=== PATIENT | female | born 1995 | race Caucasian/White ===

== ENCOUNTER → 2017-05-24 | Outpatient (CLI) | payer OTHER, SELFPAY | PROVIDERS: Family Provider Emergency Medicine; Visit Provider Nurse Practitioner Family | DX: M25.512 Pain in left shoulder (principal) | CPT/HCPCS: 73221 ==

== ENCOUNTER → 2017-06-27 16:30 | Outpatient (RCR) | payer OTHER, SELFPAY | LOC: PT 05-21 14:42 | PROVIDERS: PCP Emergency Medicine; Visit Provider Emergency Medicine | DX: M25.512 Pain in left shoulder (principal) | CPT/HCPCS: 97010; 97014; 97016; 97033; 97110; 97140; 97161; G0283 ==

== ENCOUNTER 2017-07-12 08:47 | Emergency (ER) | payer OTHER, SELFPAY | END 2017-07-12 09:57 | disposition home or self-care (01) | PROVIDERS: Emergency Provider Nurse Practitioner Family; Family Provider Emergency Medicine; Visit Provider Nurse Practitioner Family | DX: O99.511 Diseases of the respiratory system complicating pregnancy, first trimester (principal); J06.9 Acute upper respiratory infection, unspecified; J45.909 Unspecified asthma, uncomplicated; Z3A.00 Weeks of gestation of pregnancy not specified | CPT/HCPCS: 87804; 87880; 99201 ==

== ENCOUNTER 2017-09-25 09:32 | Emergency (ER) | payer OTHER, SELFPAY ==
[2017-09-25 10:04] VITALS: BP 126/78; PULSE 95; RESP 16; TEMP 36.6; O2SAT 98; BMI 25.6
[2017-09-25 10:14] LABS: UTC Influenza A Antigen Negative (Negative); UTC Influenza B Antigen Negative (Negative)
--- NOTE | 2017-09-25 10:41 | HMH.EDUTC ---
[facility] [place] Clinical Impression: Pharyngitis Qualifiers: Pharyngitis/tonsillitis etiology: unspecified etiology Qualified Code(s): J02.9 - Acute pharyngitis, unspecified Nausea & vomiting Qualifiers: Vomiting type: unspecified Vomiting Intractability: unspecified Qualified Code(s): R11.2 - Nausea with vomiting, unspecified Disposition: Home, Self-Care Condition on Discharge: Good Instructions: DI for Vomiting -- Adult, Sore Throat, Diarrhea Additional Instructions: * Monitor Temp. Tylenol and/or Ibuprofen as needed. ER if fever is no less than 101 despite alternating Tylenol and Ibuprofen * Encourage fluids, water, Gatorade, powerade, pedialyte if infant/toddler/or child * Warm salt water gargles for throat irritation *Warm fluids *Sore throat lozenges *Sleep elevated *humidifier or vaporizer Lots of rest Increase fluids, water, Gatorade, powerade ? Drink extra fluids with and between meals. If you have difficulty drinking, try very small amounts of water or suck on ice chips. ? Avoid fruit juices, as these do not replace minerals and can actually increase diarrhea. ? Children and adults can use sports drinks to replenish electrolytes. Younger children and infants should use products formulated for children, like oral rehydration solutions. ? Eat food in small amounts and let your stomach recover. ? Get lots of rest. You may feel tired or weak. ? Check with your doctor before taking medications or giving them to children. Never give aspirin to children or teenagers with a viral illness. This can cause Dann syndrome, a potentially life-threatening condition. Prescriptions: Azithromycin [Z-Huang 250mg Tab] 250 mg PO UD DOSE PK #6 tab Promethazine HCl [Phenergan 12.5mg tablet] 12.5 mg PO Q6H PRN #12 tab PRN Reason: Vomiting Referrals: Aly Collazo MD [Primary Care Provider] - Forms: Work/School Release Time of Disposition: 10:57 Medical Decision Making - Medical Records Medical records reviewed: Yes: I reviewed the patient's medical records. Vital Signs: 09/25/17 10:04 Temperature 97.8 F Temperature Source Temporal Artery Scan Pulse Rate [Right] 95 H Respiratory Rate 16 Blood Pressure [Right Arm] 126/78 Blood Pressure Mean [Right Arm] 94 Blood Pressure Position [Right Arm] Sitting 02 Sat by Pulse Oximetry 98 Oxygen Delivery Method Room Air - Lab Data Lab Results 09/25/17 10:03: Influenza Type A Ag Negative, Influenza Type B Ag Negative - Guillermo Inquiry Pt receiving controlled substance: No Guillermo was queried for this patient: No [facility] [place] - General Stated complaint: vomiting diarrhea low grade fever Mode of Arrival: Ambulatory Source of Information: Patient Limitations: No Limitations Description of Symptoms (Recalled from Triage Doc. by RN): VOMITING, DIARRHEA, HEADACHE, FEVER HEENT Symptoms (Recalled from RN notes): No Resp Symptoms (Recalled from RN notes): No Skin Symptoms (Recalled from RN notes): No MS Symptoms (Recalled from RN notes): No Functional Status (Recalled from RN notes): N - History of Present Illness Provider Complaint: Patient state that he daughter was recently diagnosed with stomach virus States that now she is having vomiting, diarrhea, sore throat and not feeling well State that child doctor told her she needed to come in and get checked too to make sure she didn't have the flu - Related Data Home Medications Medication Instructions Recorded Confirmed sertraline 25 mg tablet 25 mg PO Q24H 09/12/17 Previous Rx's Medication Instructions Recorded Azithromycin [Z-Huang 250mg Tab] 250 mg PO UD DOSE PK #6 tab 09/25/17 Promethazine HCl [Phenergan 12.5mg 12.5 mg PO Q6H PRN #12 tab 09/25/17 tablet] Allergies Allergy/AdvReac Type Severity Reaction Status Date / Time No Known Allergies Allergy Verified 09/25/17 10:09 - Worker's Comp Is this a Worker's Comp case?: No [facility] History I have reviewed the patient's past medical histor
--- NOTE | 2017-09-25 10:46 | ED_ITS ---
[facility] – [place] Disposition Clinical Impression: Pharyngitis Qualifiers: Pharyngitis/tonsillitis etiology: unspecified etiology Qualified Code(s): J02.9 - Acute pharyngitis, unspecified Nausea & vomiting Qualifiers: Vomiting type: unspecified Vomiting Intractability: unspecified Qualified Code( s): R11.2 - Nausea with vomiting, unspecified Disposition: Home, Self-Care Condition on Discharge: Good Instructions: DI for Vomiting -- Adult, Sore Throat, Diarrhea Additional Instructions: * Monitor Temp. Tylenol and/or Ibuprofen as needed. ER if fever is no less than 101 despite alternating Tylenol and Ibuprofen * Encourage fluids, water, Gatorade, powerade, pedialyte if infant/toddler/or child * Warm salt water gargles for throat irritation *Warm fluids *Sore throat lozenges *Sleep elevated *humidifier or vaporizer Lots of rest Increase fluids, water, Gatorade, powerade ? Drink extra fluids with and between meals. If you have difficulty drinking, try very small amounts of water or suck on ice chips. ? Avoid fruit juices, as these do not replace minerals and can actually increase diarrhea. ? Children and adults can use sports drinks to replenish electrolytes. Younger children and infants should use products formulated for children, like oral rehydration solutions. ? Eat food in small amounts and let your stomach recover. ? Get lots of rest. You may feel tired or weak. ? Check with your doctor before taking medications or giving them to children. Never give aspirin to children or teenagers with a viral illness. This can cause Jeovanny?s syndrome, a potentially life-threatening condition. Prescriptions: Azithromycin [Z-Huang 250mg Tab] 250 mg PO UD DOSE PK #6 tab Promethazine HCl [Phenergan 12.5mg tablet] 12.5 mg PO Q6H PRN #12 tab PRN Reason: Vomiting Referrals: Aly Collazo MD [Primary Care Provider] - Forms: Work/School Release Time of Disposition: 10:57 Medical Decision Making - Medical Records Medical records reviewed: Yes: I reviewed the patient's medical records. Vital Signs: 09/25/17 10:04 Temperature 97.8 F Temperature Source Temporal Artery Scan Pulse Rate [Right] 95 H Respiratory Rate 16 Blood Pressure [Right Arm] 126/78 Blood Pressure Mean [Right Arm] 94 Blood Pressure Position [Right Arm] Sitting 02 Sat by Pulse Oximetry 98 Oxygen Delivery Method Room Air - Lab Data Lab Results 09/25/17 10:03: Influenza Type A Ag Negative, Influenza Type B Ag Negative - Guillermo Inquiry Pt receiving controlled substance: No Guillermo was queried for this patient: No [facility] [place] HPI - General Stated complaint: vomiting diarrhea low grade fever Mode of Arrival: Ambulatory Source of Information: Patient Limitations: No Limitations Description of Symptoms (Recalled from Triage Doc. by RN): VOMITING, DIARRHEA, HEADACHE, FEVER HEENT Symptoms (Recalled from RN notes): No Resp Symptoms (Recalled from RN notes): No Skin Symptoms (Recalled from RN notes): No MS Symptoms (Recalled from RN notes): No Functional Status (Recalled from RN notes): N - History of Present Illness Provider Complaint: Patient state that he daughter was recently diagnosed with stomach virus States that now she is having vomiting, diarrhea, sore throat and not feeling well State that child doctor told her she needed to come in and get checked too to make sure she didn't have the flu - Related Data Home Medications Medication Inst
[2017-09-25 11:04] VITALS: BP 122/76; PULSE 70; RESP 18; TEMP 36.6
== END 2017-09-25 11:14 | disposition home or self-care (01) ==
PROVIDERS: Emergency Provider Nurse Practitioner; Family Provider Emergency Medicine; PCP Emergency Medicine
DX: J02.9 Acute pharyngitis, unspecified (principal); R11.2 Nausea with vomiting, unspecified
CPT/HCPCS: 87804; 99202

== ENCOUNTER 2017-10-07 15:00 | Outpatient (RCR) | payer OTHER, SELFPAY | END 2017-10-07 15:05 | disposition home or self-care (01) | LOC: OT 15:00 | PROVIDERS: Family Provider Emergency Medicine; PCP Emergency Medicine; Visit Provider Orthopaedic Surgery | DX: M75.102 Unspecified rotator cuff tear or rupture of left shoulder, not specified as traumatic (principal); S49.90XA Unspecified injury of shoulder and upper arm, unspecified arm, initial encounter | CPT/HCPCS: 97014; 97035; 97110; 97165; G0283 ==

== ENCOUNTER 2020-03-28 11:23 | Emergency (ER) | payer OTHER, SELFPAY ==
[2020-03-28 11:31] VITALS: BP 131/73; PULSE 80; RESP 17; TEMP 36.9; O2SAT 97; BMI 24.7
--- NOTE | 2020-03-28 11:42 | HMH.EDEYEP ---
ED Disposition Clinical Impression: Conjunctivitis Qualifiers: Conjunctivitis type: unspecified Laterality: left Qualified Code(s): H10.9 - Unspecified conjunctivitis Disposition: Home, Self-Care Condition on Discharge: Good Instructions: DI for Conjunctivitis Additional Instructions: Follow-up with ophthalmology within 2 days for reevaluation. Return to the emergency department for any increasing pain, visual changes or worsening symptoms. Prescriptions: Moxifloxacin HCl [Vigamox] 1 drp OS TID 7 Days drops Prescription Printed - Critical Care Critical Care Time: No Attestation: On 03/28/20, the high probability of a clinically significant, sudden or life threatening deterioration of the following system(s) required my full and direct attention, intervention and personal management. The time I documented below is in addition to time spent performing reported procedures but includes the following listed in this critical care notation. Medical Decision Making - Medical Records Medical records reviewed: Yes: I reviewed the patient's medical records. - Guillermo Inquiry Pt receiving controlled substance: No Vital Signs: 03/28/20 11:31 Temperature 98.5 F Temperature Source Oral Pulse Rate [Right Radial] 80 Respiratory Rate 17 Blood Pressure [Right Arm] 131/73 Blood Pressure Mean [Right Arm] 92 02 Sat by Pulse Oximetry 97 Oxygen Delivery Method Room Air Orders (Tests/Meds): ED MEDICATIONS Discontinued Medications Generic Name Dose Route Start Last Admin Trade Name Kush PRN Reason Stop Dose Admin Fluorescein Sodium 1 mg 03/28/20 11:37 Fluorescein Sodium 1mg Strip OP 03/28/20 11:38 ONCE ONE Tetracaine HCl 0 ml 03/28/20 11:37 Tetracaine 0.5% Ophth Solution 15ml OP 03/28/20 11:38 ONCE ONE Medical Decision Narrative: Patient with what appears to be conjunctivitis in the left eye. She does wear contact lens, so is provided a prescription for Vigamox to cover for Pseudomonas. There is no obvious foreign body, corneal abrasion or ulcer. I recommended follow-up with ophthalmology within the next 2 days for reevaluation. Eye Problem HPI - General Chief complaint: Eye Problems Stated complaint: lt eye pain Time Seen by Provider: 03/28/20 11:32 Mode of Arrival: Ambulatory Limitations: No Limitations Description of Symptoms (Recalled from ER Triage Doc. by RN): pt presents to ed with c/o left eye pain redness and drainage that began this morning. pt states that she woke up like this. - History of Present Illness HPI Narrative: This is a 24-year-old female who presents to the emergency department for pain in the left eye. It started to become red yesterday evening when she had her contacts in. She took her contacts out, went to sleep and woke up with increased redness in her eye. She denies any ocular trauma and does not think she got anything in her eye. She complains of blurry vision in this eye. No history of glaucoma. No fever. - Related Data Previous Rx's Medication Instructions Recorded Ondansetron [Zofran 4mg ODT] 4 mg PO Q8H PRN 10 Days #30 10/12/19 tab.rapdis Moxifloxacin HCl [Vigamox] 1 drp OS TID 7 Days drops 03/28/20 Allergies Allergy/AdvReac Type Severity Reaction Status Date / Time No Known Allergies Allergy Verified 03/28/20 11:36 [facility] History - Hepatitis A Screen Drug use history?: No High risk sexual behaviors?: No History of sexually transmitted infection?: No Currently employed?: No Childcare worker?: No Do you have indoor plumbing?: Yes Do you have electricity?: Yes Attestation statement:: This patient has been screened for Hepatitis A risk factors. I have reviewed the patient's past medical history: Yes Medical History: Reports:: Anxiety, Asthma, Depression Denies:: Diabetes Mellitus Type 1, Diabetes Mellitus Type 2 Laterality Cases: Bilateral: Tonsillectomy Other Surgeries: Yes: Dilation and Curettage, Ot
--- NOTE | 2020-03-28 11:59 | PC.NURSE ---
visual acuity testing done. results as follows: Right-20/100, Left- 20/50, Both-20/50
[2020-03-28 12:02] VITALS: BP 119/69; PULSE 79; RESP 15; TEMP 36.9; O2SAT 99
== END 2020-03-28 12:03 | disposition home or self-care (01) ==
PROVIDERS: Emergency Provider Emergency Medicine; PCP Emergency Medicine
DX: H10.32 Unspecified acute conjunctivitis, left eye (principal); F41.8 Other specified anxiety disorders; J45.909 Unspecified asthma, uncomplicated; F17.210 Nicotine dependence, cigarettes, uncomplicated
CPT/HCPCS: 99281

== ENCOUNTER → 2020-05-04 18:03 | Outpatient (CLI) | payer OTHER, SELFPAY | PROVIDERS: PCP Emergency Medicine; Referring Provider Emergency Medicine; Visit Provider Emergency Medicine | DX: Z03.818 Encounter for observation for suspected exposure to other biological agents ruled out (principal) | CPT/HCPCS: U0003 ==

== ENCOUNTER 2020-12-14 16:41 | Emergency (ER) | payer OTHER, SELFPAY ==
[2020-12-14 17:00] VITALS: BP 118/83; PULSE 68; RESP 19; TEMP 36.9; O2SAT 100; BMI 24.7
[2020-12-14 17:20] LABS: Apearance,Urine Clear (Clear); Bilirubin,Urine Negative (Negative); Blood, Urine 3+ (Negative); Color,Urine Dark Yellow (Yellow); Glucose,Urine (UA) Negative (Negative); Ketones,Urine Negative (Negative); PH,Urine 6.5 (5.0-8.5); Protein,Urine 1+ (Negative); Specific Gravity, Urine 1.025 (1.005-1.030); Urobilinogen,Urine 0.2 EU/dl (0.2)
[2020-12-14 17:21] LABS: UTC Leukocyte Esterase,Urine 1+ (Negative); UTC Nitrate,Urine Positive (Negative)
--- NOTE | 2020-12-14 17:58 | HMH.EDUTC ---
[facility] [place] Disposition Clinical Impression: Urinary tract infection Qualifiers: Urinary tract infection type: site unspecified Hematuria presence: with hematuria Qualified Code(s): N39.0 - Urinary tract infection, site not specified Disposition: Home, Self-Care Condition on Discharge: Good Instructions: Trimethoprim/Sulfamethoxazole (Alternative Therapy), Urinary Tract Infection, DI for Urinary Tract Infection (UTI), Phenazopyridine Additional Instructions: *Increase fluids. Water not Soda or Tea *Start antibiotic immediately and be sure to take as ordered for the FULL length of time although you should start to see improvement over the next 48 hours *Pyridium as needed Remember this medication will turn your urine [place]. This is normal but it will stain what ever it gets on *You should not use Pyridium for more than 48 hours. If so , follow up with your primary physician to review urine culture and ensure that antibiotic is adequate for infection *Be SURE to follow up anytime for new or worsening symptoms with your family doctor. AND in 48 hours for urine culture results with your family doctor, if you do not have a doctor then you may call back to the [facility] for urine culture results and further treatment. We do recommend that you choose and establish care with a Primary Care Physician. AND follow up with them in 10-14 days to repeat UA to ensure infection is resolved and blood no longer present *Be sure to let your PCP know that we sent urine cultures from the [facility] so they can follow up to ensure that you area the on the correct antibiotic Call your doctor office and make appointment for 48 hours (2 days from today) to follow up and get the results of your urine culture and further treatment Prescriptions: Sulfamethoxazole/Trimethoprim [Bactrim DS tablet] 1 each PO BID #14 tab Transmission Status: Received by [id number] Phenazopyridine HCl [Pyridium 200mg Tablet] 200 pow PO TID #6 tab Transmission Status: Received by [id number] Referrals: Aly Collazo MD [Primary Care Provider] - As needed Time of Disposition: 18:08 Medical Decision Making - Guillermo Inquiry Pt receiving controlled substance: No Guillermo was queried for this patient: No Vital Signs: 12/14/20 17:00 12/14/20 18:28 Temperature 98.4 F 98.4 F Temperature Source Oral Pulse Rate 68 Pulse Rate [Right Brachial] 68 Respiratory Rate 19 19 Blood Pressure 118/83 Blood Pressure [Right Arm] 118/83 Blood Pressure Mean [Right Arm] 94 Blood Pressure Source [Right Arm] Automatic Cuff Blood Pressure Position [Right Arm] Sitting 02 Sat by Pulse Oximetry 100 Oxygen Delivery Method Room Air - Lab Data Lab results reviewed: Yes: I reviewed the patient's lab results. Lab Results 12/14/20 17:01: Urine Color Dark yellow, Urine Appearance Clear, Urine pH 6.5, Ur Specific Cantil 1.025, Urine Protein 1+, Urine Glucose (UA) Negative, Urine Ketones Negative, Urine Blood 3+, Urine Nitrate Positive A, Urine Bilirubin Negative, Urine Urobilinogen 0.2, Ur Leukocyte Esterase 1+ A Orders (Tests/Meds): ED MEDICATIONS Discontinued Medications Generic Name Dose Route Start Last Admin Trade Name Freddieq PRN Reason Stop Dose Admin Ceftriaxone Sodium 1 gm 12/14/20 18:07 12/14/20 18:20 Ceftriaxone 1gm Vial IM 12/14/20 18:08 1 gm ONCE ONE Administration Protocol Lidocaine HCl 0 ml 12/14/20 18:07 12/14/20 18:20 Lidocaine 1% 5ml Pf Vial IM 12/14/20 18:08 2.1 ml ONCE ONE Administration ORDERS Category Date Time Status Urine Culture Stat Micro 12/14/20 17:13 Received Medical Decision Narrative: Patient denies history of kidney stones, denies fever, chills body aches or abdominal pain does report pain in left flank area and reports it as achy like pressure pain at times right before she has to urinate Discussed transfer to the ED for further evaluation and testing and patient declined [facility] [place] HPI - General S
[2020-12-14 18:28] VITALS: BP 118/83; PULSE 68; RESP 19; TEMP 36.9; O2SAT 100
== END 2020-12-14 18:31 | disposition home or self-care (01) ==
PROVIDERS: Emergency Provider Nurse Practitioner; PCP Emergency Medicine
DX: N30.00 Acute cystitis without hematuria (principal); B96.20 Unspecified Escherichia coli [E. coli] as the cause of diseases classified elsewhere; F41.8 Other specified anxiety disorders; J45.909 Unspecified asthma, uncomplicated; F17.210 Nicotine dependence, cigarettes, uncomplicated
CPT/HCPCS: 81003; 87086; 87088; 87186; 96372; 99202; G0463

== ENCOUNTER 2021-09-03 19:22 | Emergency (ER) | payer OTHER, SELFPAY ==
[2021-09-03 19:25] VITALS: BP 132/72; PULSE 86; RESP 18; TEMP 36.8; O2SAT 99; BMI 25.4
--- NOTE | 2021-09-03 19:39 | HMH.EDUTC ---
[facility] [place] Impression: Viral syndrome Disposition: Home, Self-Care Condition on Discharge: Good Instructions: Sore Throat, DI for Fever (Symptom) -- Adult, Nausea and Vomiting-Adult Additional Instructions: Drink extra fluids with and between meals. If you have difficulty drinking, try very small amounts of water or suck on ice chips. ? Avoid fruit juices, as these do not replace minerals and can actually increase diarrhea. ? Children and adults can use sports drinks to replenish electrolytes. Younger children and infants should use products formulated for children, like oral rehydration solutions. ? Eat food in small amounts and let your stomach recover. ? Get lots of rest. You may feel tired or weak. ? No greasy or fried foods for the next 24-48 hours BRAT diet Bananas Rice Apples and Christie ? Make sure to drink plenty of liquids ? Return if needed ? Straight to ER if any life threatening symptoms ? Zofran as prescribed *Monitor Temp, Over the counter Motrin or Tylenol as directed/as needed Tylenol every 4 hours and Motrin every 6 hours (as long as your family doctor has told you that you can take it) for fever or pain. and straight to ER if unable to lower temp less than 101.0 after medication given *Warm salt water gargles may help to soothe the throat *Throat Lozenges *Warm fluids like tea with honey may help to soothe the throat *Sleep elevated *Humidifier/Vaporizer Your throat swab was sent for culture. Those results are typically sent to your primary care. Be sure to follow up in 2-3 days with your family doctor/primary care physician if no improvement so they can review those result and treat if necessary. If you don?t have a primary care doctor, I recommend you get one but in the mean time, you will have to return to a walk in clinic Follow up IMMEDIATELY for new or worsening symptoms or no Noticeable improvement over the next 48-72 hours. 911 for difficulty breathing or swallowing ? Follow up with family doctor in the next 48-72 hours if no improvement or any worsening of symptoms Prescriptions: Ondansetron [Zofran 4mg ODT] 4 mg PO TIDP PRN #12 tab PRN Reason: Nausea Transmission Status: Pending to [id number] Referrals: Aly Collazo MD [Primary Care Provider] - Forms: Work/School Release Time of Disposition: 20:21 Medical Decision Making - Guillermo Inquiry Pt receiving controlled substance: No Guillermo was queried for this patient: No Vital Signs: 09/03/21 19:25 09/03/21 20:06 Temperature 98.3 F 98.3 F Temperature Source Oral Pulse Rate 86 Pulse Rate [Left Brachial] 86 Respiratory Rate 18 18 Blood Pressure 132/72 Blood Pressure [Left Arm] 132/72 Blood Pressure Mean [Left Arm] 92 Blood Pressure Source [Left Arm] Automatic Cuff Blood Pressure Position [Left Arm] Sitting 02 Sat by Pulse Oximetry 99 Oxygen Delivery Method Room Air - Lab Data Lab results reviewed: Yes: I reviewed the patient's lab results. Lab Results 09/03/21 19:30: Group A Strep Rapid Negative 09/03/21 19:38: [facility]st Clinic Negative 09/03/21 19:52: Urine Color Yellow, Urine Appearance Clear, Urine pH 6.0, Ur Specific Callahan 1.020, Urine Protein Negative, Urine Glucose (UA) Negative, Urine Ketones Negative, Urine Blood Negative, Urine Nitrate Negative, Urine Bilirubin Negative, Urine Urobilinogen 0.2, Ur Leukocyte Esterase Negative Orders (Tests/Meds): ED MEDICATIONS Discontinued Medications Generic Name Dose Route Start Last Admin Trade Name Freq PRN Reason Stop Dose Admin Ondansetron HCl 4 mg 09/03/21 20:08 09/03/21 20:13 Ondansetron 4mg Odt SL 09/03/21 20:09 4 mg ONCE ONE Administration ORDERS Category Date Time Status Strep Screen Confirmation Stat Micro 09/03/21 19:30 Received [facility] [place] - General Stated complaint: sore throat cough congestion abd pain sob Time Seen by Provider: 09/03/21 19:39 Mode of Arrival: Ambulatory Source of
[2021-09-03 20:00] LABS: UTC Pregnancy Test, Urine Negative (Negative)
[2021-09-03 20:00] LABS: Apearance,Urine Clear (Clear); Bilirubin,Urine Negative (Negative); Blood, Urine Negative (Negative); Color,Urine Yellow (Yellow); Glucose,Urine (UA) Negative (Negative); Ketones,Urine Negative (Negative); Protein,Urine Negative (Negative); UTC Leukocyte Esterase,Urine Negative (Negative); UTC Nitrate,Urine Negative (Negative); Urobilinogen,Urine 0.2 EU/dl (0.2)
[2021-09-03 20:02] LABS: Strep Scrn Group A (Rapid) Negative (Negative)
[2021-09-03 20:06] VITALS: BP 132/72; PULSE 86; RESP 18; TEMP 36.8; O2SAT 99
[2021-09-03 20:37] LABS: Adenovirus,PCR Not Detected (NotDetected); Bordetella Pertussis Not Detected (NotDetected); Chlamydophila Pneumoniae, PCR Not Detected (NotDetected); Coronavirus 19, PCR Not Detected (NotDetected); Coronavirus 229E Not Detected (NotDetected); Coronavirus NL63 Not Detected (NotDetected); Coronovirus HKU1,PCR Not Detected (NotDetected); Human Metapneumovirus Not Detected (NotDetected); Influenza A, PCR Not Detected (NotDetected); Influenza AH1, 2009 Not Detected (NotDetected); Influenza AH1, PCR Not Detected (NotDetected); Influenza AH3,PCR Not Detected (NotDetected); Influenza B, PCR Not Detected (NotDetected); Mycoplasma Pneumoniae, PCR Not Detected (NotDetected); Parainfluenza 1, PCR Not Detected (NotDetected); Parainfluenza 2, PCR Not Detected (NotDetected); Parainfluenza 3, PCR Not Detected (NotDetected); Parainfluenza 4, PCR Not Detected (NotDetected); Respiratory Syncytial Virus Not Detected (NotDetected); Rhinovirus/Enterovirus Not Detected (NotDetected)
[2021-09-03 22:08] LABS: Coronavirus OC43 Detected (NotDetected)
== END 2021-09-03 20:29 | disposition home or self-care (01) ==
PROVIDERS: Emergency Provider Nurse Practitioner; PCP Emergency Medicine
DX: B34.9 Viral infection, unspecified (principal); F41.8 Other specified anxiety disorders
CPT/HCPCS: 81003; 81025; 87430; 87581; 87632; 87798; 99203; C9803; G0463; U0003; U0005

== ENCOUNTER 2022-09-27 09:28 | Emergency (ER) | payer OTHER, SELFPAY ==
[2022-09-27 10:00] VITALS: BP 129/61; PULSE 98; RESP 20; TEMP 36.8; O2SAT 98; BMI 23.8
--- NOTE | 2022-09-27 10:12 | EXP.UTC ---
Discharge Plan Disposition Patient Disposition: Home, Self-Care Condition: Good Prescriptions Prescriptions: New phenazopyridine [Pyridium] 200 mg tablet 200 mg PO Q8H 2 Days Qty: 6 0RF sulfamethoxazole-trimethoprim [Bactrim DS] 800-160 mg Tablet 1 tab PO BID Qty: 14 0RF ondansetron 4 mg Tablet,Disintegrating 4 mg PO Q8H PRN (Reason: Nausea) Qty: 12 0RF Referrals Follow up/Referrals: Aly Collazo MD [Primary Care Provider] - See instructions Activity Restrictions/Add. Instructions Additional Instructions/Restrictions: Drink plenty of fluids. Take tylenol or ibuprofen for pain or fever. Take the medications as directed. Follow up with your regular doctor. GO TO THE ER FOR ANY WORSENING SYMPTOMS The pyridium will make your urine turn orange, this is an expected side effect. It will stain your clothes if it comes into contact with them. We will culture the urine. That will tell what bacteria is causing your infection and which antibiotics will treat it best. Sometimes the first antibiotic we prescribe turns out to not work against different bacteria. So, make sure you follow up within 3 days if you are not getting better. Clinical Impressions Clinical Impression: UTI (urinary tract infection) Instructions Patient Instructions: Urinary Tract Infection, Urine Culture, DI for Urinary Tract Infection (UTI), Phenazopyridine Discharge ED Provider: Dayton Sigala [facility] General Stated complaint: Possible UTI Urgency/burning Mode of Arrival: Ambulatory Source of Information: Patient Limitations: No Limitations Time Seen by Provider: 09/27/22 10:12 Description of Symptoms (Recalled from Triage Doc. by RN): buring when urinating, and frequent urgency HEENT Symptoms (Recalled from RN notes): No Resp Symptoms (Recalled from RN notes): No Skin Symptoms (Recalled from RN notes): No MS Symptoms (Recalled from RN notes): No Functional Status (Recalled from RN notes): n/a History of Present Illness Provider Complaint: She states that for the past 2 days she has had low back pain, dysuria, urinary frequency, and malaise. Related Data Previous Rx's Medication Instructions Recorded ondansetron 4 mg disintegrating 4 mg PO Q8H PRN Nausea #12 tabs 09/27/22 tablet phenazopyridine 200 mg tablet 200 mg PO Q8H 2 days #6 tabs 09/27/22 (Pyridium) sulfamethoxazole 800 1 tab PO BID #14 tabs 09/27/22 mg-trimethoprim 160 mg tablet (Bactrim DS) Allergies Allergy/AdvReac Type Severity Reaction Status Date / Time No Known Allergies Allergy Verified 09/27/22 10:11 Worker's Comp Is this a Worker's Comp case?: No PFSH PFSH Disclaimer: The information contained in this section may have been updated after the patient was seen, as this information can be updated by other users. Medical History Seizures Social History Smoking Status: Current every day smoker tobacco type: cigarettes packs per day: 1 alcohol intake: never substance use type: denies use current occupational status: other Travel in the last 8 weeks: None ROS Obtained: Yes All systems reviewed & no additional complaints except as documented Constitutional Constitutional: Reports system reviewed and no additional complaints, except as documented, Denies chills and Denies fever(s) Eyes Eyes: Denies eye discharge ENT Ears, Nose, Mouth, and Throat: Denies dysphagia, Denies sore throat and Denies throat swelling Cardiovascular Cardiovascular: Denies chest pain and Denies dyspnea Respiratory Respiratory: Denies chest congestion, Denies cough and Denies dyspnea Gastrointestinal Gastrointestingal: Denies abdominal pain, constipation, diarrhea, dysphagia, nausea or vomiting Genitourinary Female Genitourinary: Reports as per HPI, Reports dysuria, Reports sexual dysfunction, Reports urinary frequency, Denies urinary i
[2022-09-27 10:13] LABS: Apearance,Urine Cloudy (Clear); Color,Urine Dark Yellow (Yellow); Specific Gravity, Urine 1.025 (1.005-1.030)
[2022-09-27 10:14] LABS: Bilirubin,Urine Negative (Negative); Blood, Urine Trace (Negative); Glucose,Urine (UA) Negative (Negative); Ketones,Urine Negative (Negative); Protein,Urine Trace (Negative); UTC Leukocyte Esterase,Urine 2+ (Negative); UTC Nitrate,Urine Negative (Negative); Urobilinogen,Urine 1 EU/dl (0.2)
[2022-09-27 10:45] VITALS: BP 129/61; PULSE 98; RESP 20; TEMP 36.8; O2SAT 98
== END 2022-09-27 10:44 | disposition home or self-care (01) ==
PROVIDERS: Emergency Provider Nurse Practitioner Family; PCP Emergency Medicine
DX: N39.0 Urinary tract infection, site not specified (principal)
CPT/HCPCS: 81003; 87086; 87088; 87186; 99212; 99213; G0463

== ENCOUNTER 2022-09-28 19:38 | Emergency (ER) | payer OTHER, SELFPAY ==
--- NOTE | 2022-09-28 19:43 | XR_ITS ---
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 Views: 3 or more views. COMPARISON: CR XR FOOT LT MIN 3V 09/28/2022 7:52 PM FINDINGS: Bones/joints: Osseous structures and joint surfaces are intact. No fracture or malalignment. Soft tissues: Normal. IMPRESSION: Normal left ankle.
--- NOTE | 2022-09-28 19:43 | XR_ITS ---
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 Views: 3 or more views. COMPARISON: No relevant prior studies available. FINDINGS: Bones/joints: Normal alignment. Joint surfaces preserved. No fracture. Soft tissues: Normal. IMPRESSION: Normal left foot.
[2022-09-28 19:45] VITALS: PULSE 79; RESP 20; O2SAT 99; BMI 23.8
--- NOTE | 2022-09-28 20:13 | EXP.UTC ---
Discharge Plan Disposition Patient Disposition: Home, Self-Care Condition: Good Prescriptions Prescriptions: New ibuprofen [ibuprofen] 600 mg tablet 600 mg PO Q6HP PRN (Reason: Mild Pain) Qty: 30 0RF mupirocin 2 % ointment 1 applic topical TID 7 Days Qty: 15 0RF Referrals Follow up/Referrals: Aly Collazo MD [Primary Care Provider] - See instructions Ileana Santos DPM [Staff Physician] - See instructions Activity Restrictions/Add. Instructions Additional Instructions/Restrictions: Rest the extremity, apply ice for 15 minutes as tolerated three or four times per day, Wear the joel wrap for compression, Elevate the extremity as tolerated while you are resting. Take ibuprofen for pain. I sent in a prescription to your pharmacy. Follow up with Dr. Santos (podiatry). I put in a referral but you need to call her office and schedule an appointment. Follow up with your regular doctor. GO TO THE ER FOR ANY WORSENING SYMPTOMS Clinical Impressions Clinical Impression: Superficial abrasion Crush injury of left foot Qualifiers: Encounter type: initial encounter Qualified Code(s): S97.82XA - Crushing injury of left foot, initial encounter Stand Alone Forms Stand Alone Forms: Work/School Release Instructions Patient Instructions: DI for Crush Injury Discharge ED Provider: Dayton Sigala [facility] General Stated complaint: ao 09/28@1830@HOME iNJURED l ANKLE Mode of Arrival: Ambulatory Source of Information: Patient Limitations: No Limitations Time Seen by Provider: 09/28/22 20:13 Description of Symptoms (Recalled from Triage Doc. 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 She c/o left foot and ankle pain. It is worse when she walks or bears weight. She denies any other injury. Related Data Previous Rx's Medication Instructions Recorded ibuprofen 600 mg tablet 600 mg PO Q6HP PRN Mild Pain #30 09/28/22 tabs mupirocin 2 % topical ointment 1 applic topical TID 7 days #15 09/28/22 grams Allergies Allergy/AdvReac Type Severity Reaction Status Date / Time No Known Allergies Allergy Verified 09/28/22 19:54 Worker's Comp Is this a Worker's Comp case?: No [facility] Disclaimer: The information contained in this section may have been updated after the patient was seen, as this information can be updated by other users. Medical History Seizures Social History Smoking Status: Current every day smoker tobacco type: cigarettes packs per day: 1 alcohol intake: never substance use type: denies use current occupational status: other Travel in the last 8 weeks: None ROS Obtained: Yes All systems reviewed & no additional complaints except as documented Constitutional Constitutional: Denies chills and Denies fever(s) Eyes Eyes: Denies eye discharge ENT Ears, Nose, Mouth, and Throat: Denies dizziness, Denies otalgia and Denies sore throat Cardiovascular Cardiovascular: Denies chest pain Respiratory Respiratory: Denies shortness of breath, Denies chest congestion, Denies cough, Denies stridor and Denies wheezing Gastrointestinal Gastrointestingal: Denies nausea or vomiting Musculoskeletal Musculoskeletal: Reports as per HPI Integumentary/Breasts Skin/Breast: Denies rash Neurologic Neurologic: Denies dizziness and Denies paresthesias Allergic/Immunologic Allergic/Immunologic: Denies wheezing Physical Exam General General appearance: alert and in no apparent distress Head Head exam: atraumat
[2022-09-28 20:23] VITALS: BP 135/89; PULSE 79; RESP 20; TEMP 36.8; O2SAT 99
== END 2022-09-28 20:24 | disposition home or self-care (01) ==
PROVIDERS: Emergency Provider Nurse Practitioner Family; PCP Emergency Medicine
DX: S97.82XA Crushing injury of left foot, initial encounter (principal); S90.812A Abrasion, left foot, initial encounter; W23.0XXA Caught, crushed, jammed, or pinched between moving objects, initial encounter
CPT/HCPCS: 73610; 73630; 99212; 99213; G0463

== ENCOUNTER 2023-07-26 13:59 | Emergency (ER) | payer OTHER, SELFPAY ==
[2023-07-26 15:25] VITALS: BP 133/83; PULSE 86; RESP 18; TEMP 37.2; O2SAT 99; BMI 24.5
--- NOTE | 2023-07-26 15:33 | ED_ITS ---
Discharge Plan Disposition Patient Disposition: Home, Self-Care Condition: Good Prescriptions Prescriptions: New phenazopyridine [Pyridium] 200 mg tablet 200 mg PO Q8H 2 Days Qty: 6 0RF ciprofloxacin HCl [Cipro] 500 mg tablet 500 mg PO BID 7 Days Qty: 14 0RF Referrals Follow up/Referrals: Provider,Referral, [Primary Care Provider] - See instructions Activity Restrictions/Add. Instructions Additional Instructions/Restrictions: Drink plenty of fluids. Take tylenol or ibuprofen for pain or fever. Take the medications as directed. Follow up with your regular doctor. GO TO THE ER FOR ANY WORSENING SYMPTOMS The pyridium will make your urine turn orange, this is an expected side effect. It will stain your clothes if it comes into contact with them. We will culture the urine. That will tell what bacteria is causing your infection and which antibiotics will treat it best. Sometimes the first antibiotic we prescribe turns out to not work against different bacteria. So, make sure you follow up within 3 days if you are not getting better. Clinical Impressions Clinical Impression: UTI (urinary tract infection) Instructions Patient Instructions: Urine Culture, DI for Urinary Tract Infection (UTI), Phenazopyridine Discharge ED Provider: Dayton Sigala [facility] General Stated complaint: low back pain and dysuria Time Seen by Provider: 07/26/23 15:33 History of Present Illness Provider Complaint: She states that for the past 2 days she has had worsening dysuria, low back pain and urinary frequency. Related Data Previous Rx's Medication Instructions Recorded ciprofloxacin HCl 500 mg tablet 500 mg PO BID 7 days #14 tabs 07/26/23 (Cipro) phenazopyridine 200 mg tablet 200 mg PO Q8H 2 days #6 tabs 07/26/23 (Pyridium) Allergies Allergy/AdvReac Type Severity Reaction Status Date / Time No Known Allergies Allergy Verified 09/28/22 19:54 [facility] Disclaimer: The information contained in this section may have been updated after the patient was seen, as this information can be updated by other users. Medical History Seizures Social History Smoking Status: Current every day smoker tobacco type: cigarettes packs per day: 1 alcohol intake: never substance use type: denies use current occupational status: other Travel in the last 8 weeks: None ROS Obtained: Yes All systems reviewed & no additional complaints except as documented Constitutional Constitutional: Reports system reviewed and no additional complaints, except as documented, Denies chills and Denies fever(s) Eyes Eyes: Denies eye discharge ENT Ears, Nose, Mouth, and Throat: Denies dysphagia, Denies sore throat and Denies throat swelling Cardiovascular Cardiovascular: Denies chest pain and Denies dyspnea Respiratory Respiratory: Denies chest congestion, Denies cough and Denies dyspnea Gastrointestinal Gastrointestingal: Denies abdominal pain, constipation, diarrhea, dysphagia, nausea or vomiting Genitourinary Female Genitourinary: Reports as per HPI, Reports dysuria, Reports urinary frequency, Denies urinary incontinence, Reports urinary hesitancy and Reports urinary urgency Musculoskeletal Musculoskeletal: Denies arthralgias and Reports back pain Integumentary/Breasts Skin/Breast: Denies rash Neurologic Neurologic: Denies paresthesias Allergic/Immunologic Allergic/Immunologic: Denies throat swelling Physical Exam General General appearance: alert and in no apparent distress Head Head exam: atraumatic and normocephalic Eye Eye exam: Present normal appearance, PERRL and EOMI ENT ENT exam: Present normal exam, mucous membranes moist, TM's normal bilaterally and normal external ear exam Neck Neck exam: Present normal inspection, full ROM and trachea midline; Absent tenderness, meningismus or lymphadenopathy Chest Chest inspection: Present normal inspection and symmetric chest wall rise; Absent tenderness Respiratory Respiratory exam: Present normal lung sounds bilaterally; Absent respiratory distress, wheezes or stridor Cardiovascular Cardiovascular exam: Present regular rate, normal rhythm and normal heart sounds Abdominal Exam Abdominal exam: Present soft and normal bowel sounds; Absent distention, tenderness, guarding, rebound, rigidity, incision, psoas sign, obturator sign, heel tap sign, Gonzalez's sign, Rovsing's sign or tenderness at McBurney's Point Extremities Exam Extremities exam: Present normal inspection, full ROM and normal capillary refill; Absent tenderness, edema, joint swelling, calf tenderness or cyanosis Back Exam Back exam: Present normal inspection and full ROM; Absent tenderness, CVA tenderness (R) or CVA tenderness (L) Neurological Exam Neurological exam: Present alert, oriented X3 and normal gait Psychiatric Psychiatric exam: Present normal affect and normal mood Skin Skin exam: Present warm, dry, intact and normal color Lymphatic Lymphatic Findings: no adenopathy Medical Decision Making Medical Records Medical records reviewed: No I reviewed the patient's medical records. Guillermo Inquiry Pt receiving controlled substance: No Lab Data Lab results reviewed: Yes I reviewed the patient's lab results.
[2023-07-26 15:59] VITALS: BP 133/83; PULSE 86; RESP 18; TEMP 37.2; O2SAT 99
[2023-07-26 16:00] LABS: Apearance,Urine Cloudy (Clear); Color,Urine Orange (Yellow); Glucose,Urine (UA) Negative (Negative); Ketones,Urine Negative (Negative); PH,Urine 5.5 (5.0-8.5); Protein,Urine Negative (Negative); Specific Gravity, Urine 1.015 (1.005-1.030)
[2023-07-26 16:01] LABS: Bilirubin,Urine Negative (Negative); Blood, Urine Negative (Negative); UTC Leukocyte Esterase,Urine 1+ (Negative); UTC Nitrate,Urine Positive (Negative); Urobilinogen,Urine 0.2 EU/dl (0.2)
== END 2023-07-26 16:00 | disposition home or self-care (01) ==
PROVIDERS: Emergency Provider Nurse Practitioner Family
DX: N39.0 Urinary tract infection, site not specified (principal); B96.89 Other specified bacterial agents as the cause of diseases classified elsewhere; M54.59 Other low back pain; F17.210 Nicotine dependence, cigarettes, uncomplicated
CPT/HCPCS: 81003; 87086; 99212; 99214; G0463

== ENCOUNTER 2023-10-28 14:36 | Emergency (ER) | payer SELFPAY ==
[2023-10-28 14:50] VITALS: BP 116/76; PULSE 73; RESP 18; TEMP 36.8; O2SAT 98; BMI 24.1
[2023-10-28 14:59] LABS: Apearance,Urine Cloudy (Clear); Blood, Urine 2+ (Negative); Color,Urine Orange (Yellow); Glucose,Urine (UA) 1+ (Negative); Ketones,Urine 1+ (Negative); Protein,Urine 2+ (Negative); Specific Gravity, Urine 1.015 (1.005-1.030)
[2023-10-28 15:00] LABS: Bilirubin,Urine 2+ (Negative); UTC Leukocyte Esterase,Urine 2+ (Negative); UTC Nitrate,Urine Positive (Negative); Urobilinogen,Urine >=8 EU/dl (0.2)
--- NOTE | 2023-10-28 15:00 | ED_ITS ---
Discharge Plan Disposition Patient Disposition: Home, Self-Care Condition: Good Prescriptions Prescriptions: New fluconazole 150 mg tablet 150 mg PO ONCE Qty: 1 3RF phenazopyridine [Pyridium] 200 mg tablet 200 mg PO Q8H 2 Days Qty: 6 0RF cefdinir 300 mg capsule 300 mg PO BID 7 Days Qty: 14 0RF Referrals Follow up/Referrals: Provider,Referral, MD [Primary Care Provider] - See instructions Activity Restrictions/Add. Instructions Additional Instructions/Restrictions: Drink plenty of fluids. Take tylenol or ibuprofen for pain or fever. Take the medications as directed. Follow up with your regular doctor. GO TO THE ER FOR ANY WORSENING SYMPTOMS The pyridium will make your urine turn orange, this is an expected side effect. It will stain your clothes if it comes into contact with them. We will culture the urine. That will tell what bacteria is causing your infection and which antibiotics will treat it best. Sometimes the first antibiotic we prescribe turns out to not work against different bacteria. So, make sure you follow up within 3 days if you are not getting better. Clinical Impressions Clinical Impression: UTI (urinary tract infection) Instructions Patient Instructions: Urinary Tract Infection, Urine Culture, DI for Urinary Tract Infection (UTI), Phenazopyridine, Cefdinir Discharge ED Provider: Dayton Sigala [facility] General Stated complaint: pain when urinating Mode of Arrival: Ambulatory Source of Information: Patient Limitations: No Limitations Time Seen by Provider: 10/28/23 14:59 Description of Symptoms (Recalled from Triage Doc. by RN): Pt's symptoms are burning with urination, frequent urgency, and itching. HEENT Symptoms (Recalled from RN notes): No Resp Symptoms (Recalled from RN notes): No Skin Symptoms (Recalled from RN notes): No MS Symptoms (Recalled from RN notes): No Functional Status (Recalled from RN notes): n/a History of Present Illness Provider Complaint: She states that she has had low back pain, dysuria, urinary frequency and hesitancy for the past 2 days. Related Data Previous Rx's Medication Instructions Recorded cefdinir 300 mg capsule 300 mg PO BID 7 days #14 caps 10/28/23 fluconazole 150 mg tablet 150 mg PO ONCE 1 dose #1 tab 10/28/23 phenazopyridine 200 mg tablet 200 mg PO Q8H 2 days #6 tabs 10/28/23 (Pyridium) Allergies Allergy/AdvReac Type Severity Reaction Status Date / Time No Known Allergies Allergy Verified 10/28/23 14:58 Worker's Comp Is this a Worker's Comp case?: No [facility] Disclaimer: The information contained in this section may have been updated after the patient was seen, as this information can be updated by other users. Medical History Seizures Social History Smoking Status: Current every day smoker tobacco type: cigarettes packs per day: 1 alcohol intake: never substance use type: denies use current occupational status: other Travel in the last 8 weeks: None ROS Obtained: Yes All systems reviewed & no additional complaints except as documented Constitutional Constitutional: Reports system reviewed and no additional complaints, except as documented, Denies chills and Denies fever(s) Eyes Eyes: Denies eye discharge ENT Ears, Nose, Mouth, and Throat: Denies dysphagia, Denies sore throat and Denies throat swelling Cardiovascular Cardiovascular: Denies chest pain and Denies dyspnea Respiratory Respiratory: Denies chest congestion, Denies cough and Denies dyspnea Gastrointestinal Gastrointestingal: Denies abdominal pain, constipation, diarrhea, dysphagia, nausea or vomiting Genitourinary Female Genitourinary: Reports as per HPI, Reports dysuria, Reports urinary frequency, Denies urinary incontinence, Reports urinary hesitancy and Reports urinary urgency Musculoskeletal Musculoskeletal: Denies arthralgias and Reports back pain Integumentary/Breasts Skin/Breast: Denies rash Neurologic Neurologic: Denies paresthesias Allergic/Immunologic Allergic/Immunologic: Denies throat swelling Physical Exam General General appearance: alert and in no apparent distress Head Head exam: atraumatic and normocephalic Eye Eye exam: Present normal appearance, PERRL and EOMI ENT ENT exam: Present normal exam, mucous membranes moist, TM's normal bilaterally and normal external ear exam Neck Neck exam: Present normal inspection, full ROM and trachea midline; Absent tenderness, meningismus or lymphadenopathy Chest Chest inspection: Present normal inspection and symmetric chest wall rise; Absent tenderness Respiratory Respiratory exam: Present normal lung sounds bilaterally; Absent respiratory distress, wheezes or stridor Cardiovascular Cardiovascular exam: Present regular rate, normal rhythm and normal heart sounds Abdominal Exam Abdominal exam: Present soft and normal bowel sounds; Absent distention, tenderness, guarding, rebound, rigidity, incision, psoas sign, obturator sign, heel tap sign, Gonzalez's sign, Rovsing's sign or tenderness at McBurney's Point Extremities Exam Extremities exam: Present normal inspection, full ROM and normal capillary refill; Absent tenderness, edema, joint swelling, calf tenderness or cyanosis Back Exam Back exam: Present normal inspection and full ROM; Absent tenderness, CVA tender ness (R) or CVA tenderness (L) Neurological Exam Neurological exam: Present alert, oriented X3 and normal gait Psychiatric Psychiatric exam: Present normal affect and normal mood Skin Skin exam: Present warm, dry, intact and normal color Lymphatic Lymphatic Findings: no adenopathy Medical Decision Making Medical Records Medical records reviewed: No I reviewed the patient's medical records. Guillermo Inquiry Pt receiving controlled substance: No Vital Signs: 10/28/23 14:50 Temperature 98.2 F Temperature Source Oral Pulse Rate [Right Radial] 73 Respiratory Rate 18 Blood Pressure [Right Arm] 116/76 Blood Pressure Mean [Right Arm] 89 Blood Pressure Source [Right Arm] Automatic Cuff Blood Pressure Position [Right Arm] Sitting 02 Sat by Pulse Oximetry 98 Oxygen Delivery Method Room Air Lab Data Lab results reviewed: Yes I reviewed the patient's lab results. Orders (Tests/Meds): ORDERS Category Date Time Status Urine Culture Stat Micro 10/28/23 14:57 Ordered
[2023-10-28 15:43] VITALS: BP 116/76; PULSE 73; RESP 18; TEMP 36.8; O2SAT 98
== END 2023-10-28 15:43 | disposition home or self-care (01) ==
PROVIDERS: Emergency Provider Nurse Practitioner Family
DX: N39.0 Urinary tract infection, site not specified (principal); R30.0 Dysuria; M54.59 Other low back pain; F17.210 Nicotine dependence, cigarettes, uncomplicated
CPT/HCPCS: 81003; 87086; 99212; 99214; G0463

== ENCOUNTER 2023-11-12 12:48 | Emergency (ER) | payer SELFPAY ==
[2023-11-12 13:00] VITALS: BP 124/87; PULSE 84; RESP 18; TEMP 36.6; O2SAT 97; BMI 24.1
--- NOTE | 2023-11-12 13:05 | XR_ITS ---
FINAL REPORT CLINICAL HISTORY: pain lifted box at work COMPARISON: None FINDINGS: 2 views of the left forearm were obtained. There is no acute fracture or dislocation. The joints are intact. There is 6 mm of ulnar negative variance. There are no soft tissue abnormalities. IMPRESSION: No acute process. Reviewed, Interpreted and Dictated by Ba Wu MD Transcribed by Natasha Adams Authenticated and [facility]
--- NOTE | 2023-11-12 13:06 | EXP.UTC ---
Discharge Plan Disposition Patient Disposition: Home, Self-Care Condition: Good Prescriptions Prescriptions: New ibuprofen [IBU] 400 mg tablet 400 mg PO Q6HP PRN (Reason: Moderate Pain) Qty: 30 0RF Referrals Follow up/Referrals: Brant Rosario DO [Staff Physician] - See instructions Provider,Referral, [Primary Care Provider] - See instructions Activity Restrictions/Add. Instructions Additional Instructions/Restrictions: Rest the extremity, apply ice for 15 minutes as tolerated three or four times per day, Elevate the extremity as tolerated while you are resting. Take ibuprofen for pain. I sent in a prescription to your pharmacy. Follow up with Dr. Rosario (orthopedics). I put in a referral but you need to call his office and schedule an appointment. Follow up with your regular doctor. GO TO THE ER FOR ANY WORSENING SYMPTOMS Clinical Impressions Clinical Impression: Left wrist sprain Stand Alone Forms Stand Alone Forms: Work/School Release Instructions Patient Instructions: Wrist Sprain, DI for Wrist Sprain Discharge ED Provider: Dayton Sigala [facility] General Stated complaint: WC4/16, pain in Lt wrist Time Seen by Provider: 11/12/23 13:06 History of Present Illness Provider Complaint: She states that earlier today she picked up a heavy box at her work. This caused her to twist her left wrist and forearm. Since then she has had left wrist pain. She denies any other injury or complaint. Related Data Previous Rx's Medication Instructions Recorded ibuprofen 400 mg tablet (IBU) 400 mg PO Q6HP PRN Moderate Pain 11/12/23 #30 tabs Allergies Allergy/AdvReac Type Severity Reaction Status Date / Time No Known Allergies Allergy Verified 11/12/23 13:16 [facility] Disclaimer: The information contained in this section may have been updated after the patient was seen, as this information can be updated by other users. Medical History Seizures Social History Smoking Status: Current every day smoker tobacco type: cigarettes packs per day: 1 alcohol intake: never substance use type: denies use current occupational status: other Travel in the last 8 weeks: None ROS Obtained: Yes All systems reviewed & no additional complaints except as documented Constitutional Constitutional: Denies chills and Denies fever(s) Eyes Eyes: Denies eye discharge ENT Ears, Nose, Mouth, and Throat: Denies dizziness, Denies otalgia and Denies sore throat Cardiovascular Cardiovascular: Denies chest pain Respiratory Respiratory: Denies shortness of breath, Denies chest congestion, Denies cough, Denies stridor and Denies wheezing Gastrointestinal Gastrointestingal: Denies nausea or vomiting Musculoskeletal Musculoskeletal: Reports as per HPI Integumentary/Breasts Skin/Breast: Denies rash Neurologic Neurologic: Denies dizziness and Denies paresthesias Allergic/Immunologic Allergic/Immunologic: Denies wheezing Physical Exam General General appearance: alert and in no apparent distress Head Head exam: atraumatic, normocephalic and normal inspection Eye Eye exam: Present normal appearance, PERRL and EOMI ENT ENT exam: Present normal exam, normal oropharynx, mucous membranes moist, TM's normal bilaterally and normal external ear exam Neck Neck exam: Present normal inspection, full ROM and trachea midline; Absent meningismus or lymphadenopathy Chest Chest inspection: Present normal inspection and symmetric chest wall rise; Absent tenderness Respiratory Respiratory exam: Present normal lung sounds bilaterally; Absent respiratory distress Cardiovascular Cardiovascular exam: Present regular rate and normal rhythm; Absent JVD Abdominal Exam Abdominal exam: Present soft and normal bowel sounds; Absent distention, tenderness or guarding Extremities Exam Extremities exam: Present normal capillary refill; Absent calf tenderness Expanded Upper Extremity Exam Left: Elbow exam: Present normal inspection and full ROM; Absent tenderness, pain w/ pronation/supination or tenderness over radial head Forearm/Wrist exam: Present tenderness; Absent full ROM, swelling, abrasion, laceration, ecchymosis, deformity, crepitus, dislocation, erythema, tenderness over anatomical snuff box or pain with axial thumb loading Hand exam: Present normal inspection and full ROM; Absent tenderness, swelling, abrasion, laceration, skin avulsion, ecchymosis, deformity, crepitus, dislocation, erythema, amputation, nail avulsion or subungual hematoma Neuromotor exam: Normal wrist extension, thumb opposition, thumb IP flexion, thumb adduction and fingers 2-5 abduction Neurosensory exam: Normal radial nerve, ulnar nerve and median nerve Vascular exam: Normal capillary refill, radial pulse and ulnar pulse Back Exam Back exam: Present normal inspection; Absent tenderness Neurological Exam Neurological exam: Present alert and oriented X3 Psychiatric Psychiatric exam: Present normal affect and normal mood Skin Skin exam: Present warm, dry, intact and normal color Lymphatic Lymphatic Findings: no adenopathy Medical Decision Making Medical Records Medical records reviewed: No I reviewed the patient's medical records. Guillermo Inquiry Pt receiving controlled substance: No Orders (Tests/Meds): ORDERS Category Date Time Status Forearm XR left 2 views [XR forearm LT 2V] Stat Exams 11/12/23 13:05 Ordered XR hand LT min 3V Stat Exams 11/12/23 13:05 Ordered XR wrist LT min 3V Stat Exams 11/12/23 13:05 Ordered Radiology Data #1: Image(s): Wrist Image Reviewed: Yes I reviewed the patient's radiology image and Yes I have reviewed radiologist's interpretation Preliminary Findings: No Fracture Seen FINAL REPORT CLINICAL HISTORY: Left wrist pain lifted box at work COMPARISON: None FINDINGS: LEFT WRIST Three views demonstrate no acute fracture or dislocation. There is 6 mm of ulnar negative variance. The soft tissues are unremarkable. IMPRESSION: No acute bony abnormality. Reviewed, Interpreted and Dictated by Ba Wu MD Transcribed by Natasha Adams Authenticated and [facility] #2: Image(s): Hand Image Reviewed: Yes I reviewed the patient's radiology image and Yes I have reviewed radiologist's interpretation Preliminary Findings: No Fracture Seen FINAL REPORT CLINICAL HISTORY: pain lifted box at work COMPARISON: None FINDINGS: LEFT HAND Three views demonstrate no acute fracture or dislocation. The visualized joint spaces are normally aligned. The soft tissues are unremarkable. IMPRESSION: No acute process. Reviewed, Interpreted and Dictated by Ba Wu MD Transcribed by Natasha Adams Authenticated and [facility] Procedures Risk/Benefits of Procedure(s) Were Explained: Yes Orthopedic Splinting/Casting Injury #1: Side: left Upper Extremity Injury Location: forearm, wrist and hand Upper Extremity Immobilizer: volar splint and applied by nurse/dr guzman Post Cast/Splinting Neuro Status: intact and no change Post Cast/Splinting Vasc Status: intact and no change
[2023-11-12 14:09] VITALS: BP 124/87; PULSE 84; RESP 18; TEMP 36.6; O2SAT 97
== END 2023-11-12 14:09 | disposition home or self-care (01) ==
PROVIDERS: Emergency Provider Nurse Practitioner Family
DX: S63.502A Unspecified sprain of left wrist, initial encounter (principal); F17.210 Nicotine dependence, cigarettes, uncomplicated; X50.0XXA Overexertion from strenuous movement or load, initial encounter
CPT/HCPCS: 73090; 73110; 73130; 99212; 99214; G0463

== ENCOUNTER 2024-04-17 17:54 | Emergency (ER) | payer BC, SELFPAY ==
[2024-04-17 18:39] VITALS: BP 132/80; PULSE 92; RESP 20; TEMP 37.2; O2SAT 97; BMI 23.3
--- NOTE | 2024-04-17 18:48 | ED_ITS ---
Discharge Plan Disposition Patient Disposition: Home, Self-Care Condition: Good Prescriptions Prescriptions: New azithromycin [Zithromax Z-Huang] 250 mg tablet See Rx Instructions .ROUTE .COMPLEX 5 Days Qty: 6 0RF Rx Instructions: For 250 mg dose pack: take 500 mg today (day 1), then 250 mg for 4 days (days 2-5) methylprednisolone [Medrol (Huang)] 4 mg tablets,dose pack See Rx Instructions .Route .COMPLEX 6 Days Qty: 21 0RF Rx Instructions: taper pack; guaifenesin [Mucinex] 600 mg tablet extended release 12hr 600 mg PO BID PRN (Reason: cough) Qty: 20 0RF No Action ibuprofen [IBU] 400 mg tablet 400 mg PO Q6HP PRN (Reason: Moderate Pain) Qty: 30 0RF Referrals Follow up/Referrals: Provider,Referral, MD [Primary Care Provider] - See instructions Activity Restrictions/Add. Instructions Additional Instructions/Restrictions: *Monitor Temp, Over the counter Motrin or Tylenol as directed/as needed Tylenol every 4 hours and Motrin every 6 hours (as long as your family doctor has told you that you can take it) for fever or pain. and straight to ER if unable to lower temp less than 101.0 after medication given *Warm salt water gargles may help to soothe the throat *Throat Lozenges? *Warm fluids like tea with honey may help to soothe the throat? *Sleep elevated *Humidifier/Vaporizer *Flonase 2 sprays in each nostril daily but be aware that it may take 2-3 days before you notice improvement *Bromfed may cause drowsiness. Know how it effects you (your child) before driving, caring for small child, or sending your child to school. Not other antihistamines/allergy medications while taking bromfed Your throat swab was sent for culture. Those results are typically sent to your primary care. Be sure to follow up in 2-3 days with your family doctor/[facility] physician if no improvement so they can review those result and treat if necessary. If you don?t have a primary care doctor, I recommend you get one but in the mean time, you will have to return to a walk in clinic Follow up IMMEDIATELY for new or worsening symptoms or no Noticeable improvement over the next 48-72 hours. 911 for difficulty breathing or swallowing Clinical Impressions Clinical Impression: Sinusitis Instructions Patient Instructions: DI for Sinusitis, Sinusitis Print Language Print Language: Nepali Discharge ED Provider: Sirisha Neves [facility] [place] General Stated complaint: Congestion,body aches,runny nose Mode of Arrival: Ambulatory Source of Information: Patient Time Seen by Provider: 04/17/24 18:48 Description of Symptoms (Recalled from Triage Doc. by RN): RUNNY NOSE, HEADACHE, FEVER AT HOME, BODY ACHES, SOB AND CONGESTION HEENT Symptoms (Recalled from RN notes): Yes Resp Symptoms (Recalled from RN notes): Yes Skin Symptoms (Recalled from RN notes): No MS Symptoms (Recalled from RN notes): No Functional Status (Recalled from RN notes): WNL History of Present Illness Provider Complaint: Patient states that she has been having sinus pain and pressure, body aches, chills, States that she is blowing out thick yellowish colored mucous, feels like she is SOA due to not being able to breath out of her nose, headache and over all not feeling well States she took COVID test at work and it was negative feels like she may have a bad sinus infection Related Data Previous Rx's ?Medication ?Instructions ?Recorded ibuprofen 400 mg tablet (IBU) 400 mg PO Q6HP PRN Moderate Pain 11/12/23 #30 tabs azithromycin 250 mg tablet See Rx Instructions PO .COMPLEX 5 04/17/24 (Zithromax Z-Huang) days #6 tabs guaifenesin 600 mg tablet, 600 mg PO BID PRN cough #20 tabs 04/17/24 extended release 12 hr (Mucinex) methylprednisolone 4 mg tablets in See Rx Instructions .Route 04/17/24 a dose pack (Medrol (Huang)) .COMPLEX 6 days #21 tabs Allergies Allergy/AdvReac Type Severity Reaction Status Date / Time No Known Allergies Allergy Verified 11/12/23 13:16 Worker's Comp Is this a Worker's Comp case?: No [facility] Disclaimer: The information contained in this section may have been updated after the patient was seen, as this information can be updated by other users. Medical History Seizures Social History Smoking Status: Current every day smoker tobacco type: cigarettes packs per day: 1 alcohol intake: never substance use type: denies use current occupational status: other Travel in the last 8 weeks: None ROS Obtained: Yes All systems reviewed & no additional complaints except as documented and Yes Systems reviewed as appropriate & no additional complaints except as documented Constitutional Constitutional: Reports system reviewed and no additional complaints, except as documented, Reports as per HPI, Reports body ache, Reports chills, Reports fever(s) and Reports headache(s) ENT Ears, Nose, Mouth, and Throat: Reports system reviewed and no additional complaints, except as documented, Reports as per HPI, Reports headache(s), Reports sinus pain and Reports sinus pressure Cardiovascular Cardiovascular: Reports system reviewed and no additional complaints, except as documented and Reports as per HPI Respiratory Respiratory: Reports system reviewed and no additional complaints, except as documented, Reports as per HPI, Reports shortness of breath (feels SOA due to pressure and congestion in sinuses), Reports chest congestion and Reports cough Neurologic Neurologic: Reports headache(s) Physical Exam General General appearance: alert and in no apparent distress ENT ENT exam: Present mucous membranes moist Expanded ENT Exam Nose exam: Present sinus tenderness (reports tenderness with palpation and feeling of pressure behind her eyes) Throat exam: Present other (PND noted) Respiratory Respiratory exam: Present normal lung sounds bilaterally; Absent respiratory distress or wheezes Cardiovascular Cardiovascular exam: Present regular rate, normal rhythm and normal heart sounds Abdominal Exam Abdominal exam: Present soft and normal bowel sounds; Absent distention or tenderness Neurological Exam Neurological exam: Present alert, oriented X3 and normal gait Medical Decision Making Medical Records Screening: Per USPSTF and CDC recommendations, given the prevalence of disease in our region, it is our hospital?s policy to screen for HIV and viral Hepatitis for all patients aged 18 and over and those with ongoing risk factors. Guillermo Inquiry Pt receiving controlled substance: No Guillermo was queried for this patient: No Vital Signs: 04/17/24 18:39 Temperature 99.0 F Temperature Source Oral Pulse Rate [Left Brachial] 92 H Respiratory Rate 20 Blood Pressure [Left Arm] 132/80 Blood Pressure Mean [Left Arm] 97 02 Sat by Pulse Oximetry 97 Lab Data Lab results reviewed: Yes I reviewed the patient's lab results. Medical Decision Narrative: Patient states that she has taken azithromycin and medrol in the past without complications or reaction
[2024-04-17 18:49] LABS: UTC Influenza A Antigen Negative (Negative)
[2024-04-17 18:50] LABS: UTC Influenza B Antigen Negative (Negative)
[2024-04-17 19:04] VITALS: BP 130/80; PULSE 90; RESP 20; TEMP 37.2
== END 2024-04-17 19:07 | disposition home or self-care (01) ==
PROVIDERS: Emergency Provider Nurse Practitioner
DX: J01.90 Acute sinusitis, unspecified (principal); R09.81 Nasal congestion; J34.89 Other specified disorders of nose and nasal sinuses; R06.02 Shortness of breath; F17.210 Nicotine dependence, cigarettes, uncomplicated
CPT/HCPCS: 87804; 99212; 99214; G0463

== ENCOUNTER 2024-11-02 09:30 | Outpatient (CLI) | payer BC, SELFPAY | END 2024-11-02 23:59 | disposition home or self-care (01) | LOC: LAB.DROPOF 11-03 14:58 | PROVIDERS: PCP Nurse Practitioner; Visit Provider Nurse Practitioner | DX: M54.50 Low back pain, unspecified (principal) | CPT/HCPCS: 87086; 87088; 87186 ==

== ENCOUNTER 2025-02-27 19:40 | Emergency (ER) | payer BC, SELFPAY ==
--- NOTE | 2025-02-27 19:39 | ECG_ITS ---
APPROVED REPORT Exam: Resting ECG HR:76 bpm ECG Measurements Heart Rate 76 AXES GA 130 P 70 QRSd 91 QRS 83 QT 373 T 70 QTc 404 Conclusion SINUS RHYTHM INCOMPLETE RIGHT BUNDLE BRANCH BLOCK [90+ ms QRS DURATION, TERMINAL R IN V1/V2, 40+ ms S IN I/aVL/V4/V5/V6] BORDERLINE ECG UNCONFIRMED REPORT Electronically signed by : Dayton Alaniz, 02/27/2025 22:51:09
[2025-02-27 19:41] VITALS: BP 147/91; PULSE 80; RESP 16; TEMP 36.8; O2SAT 100; BMI 18.2
--- OUTSIDE RECORDS SUMMARY | 2025-02-27 19:50 | XMS_ITS | Clinical Summary ---
Author Organization [facility] Address [address] [place] [address] Phone Care Team Providers Care Paint Department Supervisor Name Role Phone Louie Morales MD Primary Care Provider [phone] Allergies No known active allergies Medications mometasone (ASMANEX) 220 mcg (30 doses) inhaler Inhale 2 Puffs into the lungs daily. Active beclomethasone (QVAR) 80 mcg/actuation inhaler Inhale into the lungs 2 times daily. Active montelukast (SINGULAIR) 10 mg tablet Take by mouth every evening. Active amitriptyline (ELAVIL) 25 mg tablet Take by mouth nightly. Active norgestimate-eth inyl estradiol (ORTHO-CYCLEN) 0.25-35 mg-mcg per tablet Take 1 Tab by mouth daily. Active Surgical History Surgery Date Site/Laterality Comments DILATION AND CURETTAGE OF UTERUS 07/29/2017 miscariage Medical History Medical History Date Comments Asthma Migraine Social History Tobacco Use Types Packs/Day Years Used Date Smoking Tobacco: Every Day Cigarettes Smokeless Tobacco: Never Alcohol Use Standard Drinks/Week Comments No 0 (1 standard drink = 0.6 oz pur e alcohol) Sexually Active Control Partners Comments Yes Male Comments Unknown Sex and Gender Information Value Date Recorded Sex Assigned at Not on file Legal Sex Female 5:10 AM EDT Gender Identity Not on file Sexual Orientation Not on file Obstetrics History Last Filed Vital Signs Vital Sign Reading Time Taken Comments Blood Pressure 98/65 05/27/2018 7:30 AM EDT Pulse 88 05/27/2018 7:30 AM EDT Temperature 36.9 C (98.5 F) 05/27/2018 5:38 AM EDT Respiratory Rate 16 05/27/2018 7:30 AM EDT Oxygen Saturation 99% 05/27/2018 7:30 AM EDT Inhaled Oxygen Concentration - - Weight 61.2 kg (135 lb) 05/27/2018 5:38 AM EDT Height 157.5 cm (5' 2 ) 05/27/2018 5:38 AM EDT Body Mass Index 24.69 05/27/2018 5:38 AM EDT Plan of Treatment Health Maintenance Due Date Last Done Comments Annual Wellness Exam 1999 DTaP/TDaP/Td (1 - Tdap) 2015 Hepatitis B Vaccine (1 of 3 - 19+ 3-dose series) 2015 Cervical Cancer Screening 2017 Pap Smear 2017 COVID-19 Vaccine (2023-2 5 season) 2024 Influenza Vaccine (#1) 2025 Chlamydia Screening Discontinued 05/27/2018 Meningococcal B Vaccine Aged Out No l onger eligible based on patient's age to complete this topic Pneumococcal Vaccine 0-49 Aged Out No longer eligible based on patient's age to complete this topic Procedures Procedure Name Priority Date/Time Associated Diagnosis Comments CHLAMYDIA/GC BY TMA STAT 05/27/2018 6:19 AM EDT from Last 3 Months or Most Recently Relevant to Health Maintenance Results * CHLAMYDIA/GC BY TMA (05/27/2018 6:19 AM EDT) Chlamydia trachomatis Not Detected Not Detected 05/28/2018 2:29 AM EDT PREFERRED [facility] Neisseria gonorrhoeae Not Detected Not Detected 05/28/2018 2:29 AM EDT [facility]REF[facility] Swab SPECIMEN FROM UTERINE CERVIX / Unknown 05/27/2018 6:19 AM EDT 05/27/2018 6:24 AM EDT Narrative [facility]REFERRED [facility] - 05/28/2018 2:29 AM EDT Testing methodology is beauty culture teacher mediated amplification (TMA) using the Aptima Combo 2 assay from [employer]. A negative result does not completely rule out a Chlamydia trachomatis or Neisseria gonorrhoeae infection due to potential inhibitors or levels present below the limit of detection by this assay. Results are dependent on proper collection and transport of specimen. This test is indicated for medical purposes only and should not be used for legal or forensic purposes. The performance characteristics of this test were validated by [facility] laboratory. This assay is FDA cleared to test the following specimens: clinician-collected endocervical, vaginal and male urethral swab specimens, patient collected vaginal specimens within a clinic setting, Thin Prep Specimens in [employer]erv[employer]yt Solution, and first-stream, unpreserved male urine specimens. Testing on female urine is not FDA approved by this methodology, but has been developed and validated by the [facility] laboratory. Detailed methodology is available upon request. Carly Douglas MD MICROBIOLOGY - GENERAL ORDERA BLES Final Result PREFERRED LAB [facility] [address] [place] [address] from Last 3 Months or Most Recently Relevant to Health Maintenance Insurance [facility] Care Teams Paint Department Supervisor Relationship Specialty Start Date End Date Louie Morales MD [address] [place] [address] [place] [id number] PCP - General Specialist/Technologist, Other-Surgical 12/22/12
[2025-02-27 20:00] VITALS: BP 151/107; PULSE 74; RESP 18; O2SAT 100
--- NOTE | 2025-02-27 20:01 | XR_ITS ---
PROCEDURE INFORMATION: Exam: XR Chest Exam date and time: 02/27/2025 8:30 PM Age: 29 years old Clinical indication: Sternal or substernal pain; Additional info: Cp TECHNIQUE: Imaging protocol: Radiologic exam of the chest. Views: 1 view. COMPARISON: CR CXR2V XR chest 2V 04/26/2018 4:28 PM FINDINGS: Lungs: No consolidation. Pleural spaces: No pleural effusion. No pneumothorax. Heart/Mediastinum: No cardiomegaly. Bones/joints: Unremarkable. IMPRESSION: No acute findings.
[2025-02-27] MEDS: MAGNESIUM SULFATE IN WATER 2 GM/50 ML PIGGYBACK IV (20:05)
[2025-02-27 20:06] LABS: Hematocrit 38.2 % (37.0-47.0); Hemoglobin 12.8 g/dL (12.2-16.2); Immature Granulocytes % 0.1 %; Mean Corpuscular HGB Conc 33.5 g/dL (31.8-35.4); Mean Corpuscular Hemoglobin 30.5 pg (27.0-31.2); Mean Corpuscular Volume 91.0 fl (81-99); Nucleated Red Blood Cells % 0 %; Platelet Count 273 K/mm3 (142-424); Red Blood Count 4.20 M/mm3 (4.20-5.40); Red Cell Distribution Width-SD 39.4 fL; White Blood Count 7.6 K/mm3 (4.8-10.8)
[2025-02-27] MEDS: 0.9 % SODIUM CHLORIDE 1000ML 1,000 ML 999 ML IV (20:06)
[2025-02-27] MEDS: ACETAMINOPHEN 500MG TAB 1000 MG PO (20:06)
[2025-02-27 20:08] LABS: Albumin Level 4.0 g/dl (3.5-5.0); Chloride 104 mmol/L (98-107); Potassium 3.5 mmoL/L (3.5-5.1); Sodium 135 mmol/L (136-145)
--- NOTE | 2025-02-27 20:10 | ED_ITS ---
<Statement entered by Mary Alaniz MD - 02/27/25 21:05> I was consulted by the KEISHA, and we discussed the complexity of the problems being addressed. I approved the treatment and management plan for this patient's care in the emergency department, thus performing a substantive portion of the medical decision making. Mary Alaniz MD, GUERDA, FACEP Discharge Plan Disposition Patient Disposition: Home, Self-Care Prescriptions Prescriptions: No Action norelgestromin-ethin.estradiol [Zafemy] 150-35 mcg/24 hr patch weekly 1 patch transdermal WEEKLY Patient Comments: APPLY 1 PATCH TOPICALLY ONCE A WEEK DIRECTED buspirone 7.5 mg tablet 7.5 mg PO BID Patient Comments: TAKE 1 TABLET BY MOUTH TWICE DAILY baclofen 5 mg tablet 5 mg PO TID PRN (Reason: muscle spasm) Qty: 9 2RF lidocaine 4 % adhesive patch,medicated 1 patch topical DAILY PRN (Reason: pain) Qty: 10 0RF Rx Instructions: apply for 12 hours then remove for 12 hours nitrofurantoin monohyd/m-cryst 100 mg capsule 100 mg PO Q12H 7 Days Qty: 14 0RF Rx Instructions: must administer with a meal/food Referrals Follow up/Referrals: Roc Jay DO [Staff Physician, Family Practice] - See instructions Roc Fish MD [Staff Physician, Cardiology] - See instructions Provider,MD Shane [Referring, Medical] - See instructions Activity Restrictions/Add. Instructions Additional Instructions/Restrictions: Today you were evaluated in the emergency department. You were evaluated for chest pain and a migraine. Your lab work was overall unremarkable, your troponin was negative. You were given medications for symptomatic treatment. Please follow-up with your PCP and I would also like you to follow back up with Dr. Fish if you continue to have chest pain. Please return to the ED for any worsening of your condition. Clinical Impressions Clinical Impression: Chest pain, Migraine Instructions Patient Instructions: DI for Migraine, DI for Chest Pain Print Language Print Language: Czech Discharge ED Provider: Mary Alaniz [facility] General Chief Complaint: Chest Pain Stated Complaint: chest pain Time Seen by Provider: 02/27/25 19:54 Mode of Arrival: Ambulatory Source of Information: Patient Description of Symptoms (Recalled from ER Triage Doc. by RN): Pt presents with c/o intermittent chest pain that began x1 day ago with pain radiating into left arm and jaw. Pt report pain going away but returning today after onset of migraine. Pt denies N/V, SOA or any other associated symptoms. History of Present Illness HPI narrative: patient is a 29-year-old female PMHx palpitations, anxiety, depression who presents to the ED for complaints of left-sided chest pain that radiates down her left arm and migraine today. Patient states she had an episode of chest pain yesterday which resolved on its own. Related Data Home Medications ?Medication ?Instructions ?Recorded ?Confirmed buspirone 7.5 mg tablet 7.5 mg PO BID 11/02/2411/02 norelgestromin 150 mcg-e.estradiol 1 patch transdermal WEEKLY 11/02/24 11/02/24 35 mcg/24 hr weekly transderm patch (Zafemy) Previous Rx's ?Medication ?Instructions ?Recorded baclofen 5 mg tablet 5 mg PO TID PRN muscle spasm #9 11/02/24 tabs lidocaine 4 % topical patch 1 patch topical DAILY PRN pain #10 11/02/24 ea nitrofurantoin 100 mg PO Q12H 7 days #14 ca ps 11/05/24 monohydrate/macrocrystals 100 mg capsule Allergies Allergy/AdvReac Type Severity Reaction Status Date / Time No Known Allergies Allergy Verified 11/02/24 09:[address] [facility] Disclaimer: The information contained in this section may have been updated after the patient was seen, as this information can be updated by other users. Medical History (Updated 02/27/25 @ 20:52 by Lenora Rodriguez APRN) Low back pain Seizures Social History Smoking Status: Current every day smoker tobacco type: cigarettes packs per day: 1 alcohol intake: never substance use type: denies use current occupational status: other Travel in the last 8 weeks?: None Have you lived/traveled outside US in past 30 days?: No Contact w/someone who lives/traveled outside US past 30 days?: No Exposure to someone with infectious disease in past 14 days?: No Do you have a fever (greater than 100.4 F or 38 C)?: No Have you tested positive for COVID-19?: No Exposed to someone with COVID-19 in past 14 days?: No Do you have a sore throat?: No Do you have a cough?: No Do you have any weakness?: No Do you have any diarrhea?: No Are you experiencing any unusual bleeding?: No Do you have any muscle aches/pain?: No Do you have any abdominal pain?: No Are you experiencing loss of taste or smell?: No Other Medical History Have you received the Flu Vaccine for this season: No Have you received the Pneumonia Vaccine: No ROS Obtained: Yes Systems reviewed as appropriate & no additional complaints except as documented Physical Exam General General appearance: alert Head Head exam: atraumatic Chest Chest inspection: Present normal inspection Respiratory Respiratory exam: Present normal lung sounds bilaterally Cardiovascular Cardiovascular exam: Present regular rate and normal rhythm Abdominal Exam Abdominal exam: Present soft Neurological Exam Neurological exam: Present alert and oriented X3 Skin Skin exam: Present warm HEART Score HEART Score HEART Score assessment performed?: Yes History (anamnesis): Slightly suspicious ECG: Normal Age: <45 years Risk factors: No known risk factors Troponin: </= normal limit HEART Score: 0 Critical Care Critical Care Time Critical Care Time: No Medical Decision Making Guillermo Inquiry Pt receiving controlled substance: No Vital Signs Vital Signs: 02/27/25 19:41 02/27/25 20:00 02/27/25 20:32 Temperature 98.3 F Temperature Source Oral Pulse Rate 74 80 Pulse Rate [Radial] 80 Respiratory Rate 16 18 15 Blood Pressure 151/107 H 141/85 H Blood Pressure [Right Arm] 147/91 H Blood Pressure Mean [Right Arm] 109 Blood Pressure Position [Right Arm] Sitting 02 Sat by Pulse Oximetry 100 100 100 Oxygen Delivery Method Room Air Lab Data Labs: Lab Results 02/27/25 19:40: WBC 7.6, RBC 4.20, Hgb 12.8, Hct 38.2, MCV 91.0, MCH 30.5, MCHC 33.5, RDW 11.9, Plt Count 273, MPV 12.2 H, Neut % (Auto) 58.6, Lymph % (Auto) 35.3, [place] % (Auto) 5.1, Eos % (Auto) 0.4, Baso % (Auto) 0.5, Neut # (Auto) 4.5, Lymph # (Auto) 2.7, [place] # (Auto) 0.4, Eos # (Auto) 0.0, Baso # (Auto) 0.0, S odium 135 L, Potassium 3.5, Chloride 104, Carbon Dioxide 27, Anion Gap 7.5, BUN 8, Creatinine 0.60, Estimated Creat Clear 127, Estimated GFR 119, Est GFR ( Amer) 144, Glucose 95, Calcium 9.8, Total Bilirubin 0.4, AST 33, ALT 27, Alkaline Phosphatase 68, Troponin I < 0.01, Total Protein 7.7, Albumin 4.0, Globulin 3.7 H, Albumin/Globulin Ratio 1.1 02/27/25 20:07: Urine Color Yellow, Urine Appearance Clear, Urine pH 6.5, Ur Specific [place] 1.020, Urine Protein Negative, Urine Glucose (UA) Negative, Urine Ketones Negative, Urine Blood 2+ A, Urine Nitrate Negative, Urine Bilirubin Negative, Urine Urobilinogen 0.2, Ur Leukocyte Esterase Negative, Urine RBC 3-5, Urine WBC 3-5, Ur Squamous Epith Cells 3-5, Urine Bacteria Trace, Urine Mucus 1+, Urine HCG, Qual Negative 02/27/25 19:40 02/27/25 19:40 Response Orders (Tests/Meds): ED MEDICATIONS Discontinued Medications Generic Name Dose Route Start Last Admin Trade Name Freq PRN Reason Stop Dose Admin Acetaminophen 1,000 mg 02/27/25 20:01 02/27/25 20:06 Acetaminophen 500mg Tab PO 02/27/25 20:02 1,000 mg ONCE ONE Administration Sodium Chloride 1,000 mls @ 999 mls/hr 02/27/25 19:58 02/27/25 20:06 Sod Chlor 0.9% 1000ml Bag IV 02/27/25 20:58 999 mls/hr .Q1H1M ONE Administration Magnesium Sulfate 2 gm in 50 mls @ 50 mls/hr 02/27/25 19:58 02/27/25 20:05 Magnesium Sulfate 2gm/50ml Premix IV 02/27/25 20:57 50 mls/hr ONCE ONE Administration ORDERS Category Date Time Status CXR --portable [XR chest portable] Stat Exams 02/27/25 20:01 Taken CBC w/Auto Diff [Complete Blood Count Auto Diff] Stat Lab 02/27/25 19:40 Completed CMP [Comprehensive Metabolic Panel] Stat Lab 02/27/25 19:40 Completed HIV Combo Stat Lab 02/27/25 19:40 Received Hepatitis C Ab Qual. W/ RFX Stat Lab 02/27/25 19:40 Received Trop I [Troponin I] Stat Lab 02/27/25 19:40 Completed Troponin I Q3H Lab 02/27/25 23:00 Ordered Troponin I Q3H Lab 02/28/25 02:00 Ordered Urinalysis and Microscopic Stat Lab 02/27/25 20:07 Completed Urine , HCG Qual. Stat Lab 02/27/25 20:07 Completed MDM Narrative Medical Decision Narrative: In summary, patient is a 29-year-old female PMHx palpitations, anxiety, depression who presents to the ED for complaints of left-sided chest pain that radiates down her left arm and migraine today. Patient states she had an episode of chest pain yesterday which resolved on its own. She has migraines at baseline, usually takes Tylenol and the migraine resolves however today it has been persistent. Denies any red flag symptoms. Upon initial evaluation in the ED patient is alert, oriented and cooperative, she is hemodynamically stable. Her physical exam is unremarkable. PERRLA, no nystagmus. Differential diagnosis include ACS, pulmonary embolism, cardiac arrhythmia, migraine, complex migraine, among others. Discussed with patient we will proceed with imaging, labs and urinalysis. She will be symptomatically managed with IV fluids, magnesium IV and acetaminophen. CBC unremarkable for any leukocytosis, stable H&H. CMP overall unremarkable. First troponin < 0.01. Urinalysis unremarkable for any infectious process. hCG negative. Upon reassessment, patient states that her migraine has been up from a 8 out of 10 to a 3 out of 10. She states that her chest pain has resolved at this time. I updated her on labs so far. Plan to discharge her home after medications and chest x-ray result. My informal review of the chest x-ray are no acute findings. Patient continues to remain hemodynamically stable. I discussed that she will need to follow-up with PCP and advised that she follow back up with Dr. Fish if she continues to have chest pain. Discussed return precautions to the ED and patient verbalized understanding.
[2025-02-27 20:11] LABS: Alanine Aminotransferase 27 U/L (12-78); Albumin/Globulin Ratio 1.1 (1.1-1.8); Alkaline Phosphatase 68 U/L (38-126); Anion Gap 7.5 mEq/L (5-15); Aspartate Amino Transferase 33 U/L (14-36); Bilirubin,Total 0.4 mg/dl (0.2-1.3); Blood Urea Nitrogen 8 mg/dl (7-17); Calcium 9.8 mg/dl (8.4-10.2); Carbon Dioxide 27 mmol/L (22.0-30.0); Creatinine Clearance Estimated 127 mL/min (50-200); Creatinine,Serum 0.60 mg/dl (0.52-1.04); Estimated Glomerular Filt Rate 119 ml/min (>60); GFR (African American) 144 ML/MIN (>60); Globulin 3.7 g/dL (1.3-3.2); Glucose 95 mg/dl (74-100); Total Protein,Serum 7.7 g/dl (6.3-8.2)
[2025-02-27 20:12] LABS: Microscopic, Urine URINE MICROSCOPIC (MICROSCOPIC)
[2025-02-27 20:16] LABS: Bilirubin,Urine Negative (Negative); Color,Urine YELLOW (Yellow); Glucose,Urine (UA) Negative (Negative); Ketones,Urine Negative (Negative); Leukocyte Esterase,Urine Negative (Negative); PH,Urine 6.5 (5.0-8.5); Protein,Urine Negative (Negative); Specific Gravity, Urine 1.020 (1.005-1.030); Urobilinogen,Urine 0.2 EU/dl (0.2)
[2025-02-27 20:17] LABS: Urine Pregnancy, HCG Qual. Negative (Negative)
[2025-02-27 20:26] LABS: Troponin I < 0.01 ng/ml (0.00-0.034)
[2025-02-27 20:31] LABS: Bacteria,Urine Trace /lpf; Mucus,Urine 1+ /lpf
[2025-02-27 20:32] VITALS: BP 141/85; PULSE 80; RESP 15; O2SAT 100
[2025-02-27 20:59] LABS: Hepatitis C Ab Qual. W/ RFX NEGATIVE (Negative)
[2025-02-27 21:03] VITALS: BP 128/85; PULSE 76; RESP 16; TEMP 36.8; O2SAT 99
== END 2025-02-27 21:04 | disposition home or self-care (01) ==
PROVIDERS: Nurse Practitioner; Emergency Provider Student in an Organized Health Care Education/Training Program; PCP Nurse Practitioner Family
DX: R07.9 Chest pain, unspecified (principal); G43.909 Migraine, unspecified, not intractable, without status migrainosus; F41.9 Anxiety disorder, unspecified; F17.210 Nicotine dependence, cigarettes, uncomplicated
CPT/HCPCS: 71045; 80053; 81001; 81025; 84484; 85025; 86803; 87389; 93005; 96361; 96365; 99285; J3475; J7030

== ENCOUNTER 2025-03-09 11:17 | Outpatient (CLI) | payer BC, SELFPAY ==
--- OUTSIDE RECORDS SUMMARY | 2025-03-09 11:20 | XMS_ITS | Clinical Summary ---
Author Organization [facility] Address [address] [place] [address] Phone Care Team Providers Care It Administrator Name Role Phone Louie Morales MD Primary Care Provider [phone] Allergies No known active allergies Medications mometasone [...] Diagnosis Comments CHLAMYDIA/GC BY TMA STAT 05/27/2018 6 :19 AM EDT from Last 3 Months or Most Recently Relevant to Health Maintenance Results * CHLAMYDIA/GC BY TMA (05/27/2018 6:19 AM EDT) Chlamydia trachomatis Not Detected Not Detected 05/28/2018 2:29 AM EDT [facility]REFERRED [facility] Neisseria gonorrhoeae Not Detected Not Detected 05/28/2018 2:29 AM EDT [facility]REFERRED [facility] Swab SPECIMEN FROM UTERINE CERVIX / Unknown 05/27/2018 6:19 AM EDT 05/27/2018 6:24 AM EDT Narrative [facility]REF[facility]ED [facility] - 05/28/2018 2:29 AM EDT Testing methodology is grinder lap mediated amplification (TMA) using the Aptima Combo 2 assay from [employer]. A negative result does not completely rule [...] characteristics of this test were validated by [facility] laboratory. This assay is FDA cleared to test the following specimens: clinician-collected endocervical, vaginal and male urethral swab specimens, patient collected vaginal specimens within a clinic setting, Thin Prep Specimens in PreservCyt Solution, and first-stream, unpreserved male urine specimens. Testing on female urine is not FDA approved by this methodology, but has been developed and validated by the [facility] laboratory. Detailed methodology is available upon request. Carly Douglas MD MICROBIOLOGY - GENERAL ORDERA BLES Final Result PREFERRED LAB [facility] [address] [facility] , [place] [address] from Last 3 Months or Most Recently Relevant to Health Maintenance Insurance [facility] Care Teams It Administrator Relationship Specialty Start Date End Date Louie Morales MD [address] [address] [place] [address] [place] [phone] PCP - General Specialist/Technologist, Other-Surgical 12/22/12
[2025-03-09 11:53] LABS: Hematocrit 38.4 % (37.0-47.0); Hemoglobin 12.5 g/dL (12.2-16.2); Immature Granulocytes % 0.2 %; Mean Corpuscular HGB Conc 32.6 g/dL (31.8-35.4); Mean Corpuscular Hemoglobin 29.8 pg (27.0-31.2); Mean Corpuscular Volume 91.6 fl (81-99); Nucleated Red Blood Cells % 0 %; Platelet Count 233 K/mm3 (142-424); Red Blood Count 4.19 M/mm3 (4.20-5.40); Red Cell Distribution Width-SD 40.2 fL; White Blood Count 5.4 K/mm3 (4.8-10.8)
[2025-03-09 12:15] LABS: Alanine Aminotransferase 17 U/L (12-78); Albumin Level 4.3 g/dl (3.5-5.0); Alkaline Phosphatase 62 U/L (38-126); Anion Gap 10.2 mEq/L (5-15); Aspartate Amino Transferase 25 U/L (14-36); Bilirubin,Direct 0.1 mg/dl (0.0-0.4); Bilirubin,Indirect 0.4 mg/dL (0.0-0.9); Bilirubin,Total 0.5 mg/dl (0.2-1.3); Bilirubin,Unconjugated 0.4 mg/dL (0.0-1.1); Blood Urea Nitrogen 10 mg/dl (7-17); Calcium 9.4 mg/dl (8.4-10.2); Carbon Dioxide 26 mmol/L (22.0-30.0); Chloride 106 mmol/L (98-107); Cholesterol 186 mg/dl (140-200); Creatinine,Serum 0.60 mg/dl (0.52-1.04); Estimated Glomerular Filt Rate 119 ml/min (>60); GFR (African American) 144 ML/MIN (>60); Glucose 77 mg/dl (74-100); HDL Cholesterol 59 mg/dl (40-60); Magnesium 1.9 mg/dl (1.6-2.3); Potassium 4.2 mmoL/L (3.5-5.1); Sodium 138 mmol/L (136-145); Total Protein,Serum 6.6 g/dl (6.3-8.2); Triglycerides 119 mg/dl (30-150)
[2025-03-09 12:33] LABS: Free Thyroxine Index 2.9 ug/dL (5.93-13.13); T4 (Thyroxine) 12.0 ug/dl (5.53-11.0); Triiodothryronine (T3) Uptake 24 % (23.5-40.5)
[2025-03-09 12:34] LABS: Free T4 (Free Thyroxine) 1.01 ng/dl (0.78-2.19)
[2025-03-09 12:46] LABS: Thyroid Stimulating Hormone 0.81 uIU/mL (0.465-4.68); Thyroid Stimulating Hormone 0.85 uIU/mL (0.465-4.68)
== END 2025-03-09 23:59 | disposition home or self-care (01) ==
LOC: LAB 11:18
PROVIDERS: PCP Nurse Practitioner Family; Visit Provider Nurse Practitioner
DX: I49.1 Atrial premature depolarization (principal); I49.3 Ventricular premature depolarization; R53.83 Other fatigue
CPT/HCPCS: 36415; 80048; 80061; 80076; 83735; 84436; 84439; 84443; 84479; 85025; 93270

== ENCOUNTER 2025-03-24 08:32 | Outpatient (CLI) | payer BC, SELFPAY ==
--- OUTSIDE RECORDS SUMMARY | 2025-03-22 10:00 | XMS_ITS | Encounter Summary ---
[facility] Organization [facility] Address [address] [place] [address] Care Team Providers Care Cold Work Operator Name Role Phone Elisa Abdalla APRN Primary Care Provider [phone] Reason for Visit * Reason Comments Hyperthyroidism New patient referred by Elisa Abdalla APRN for hyperthyroidism Encounter Details Date Type Department Care Team (Late st Contact Info) Description 03/22/2025 10:00 AM EDT Office Visit [facility]OCR[facility] [address] [facility] [address] [place] [phone] Lowell Castanon PA-C [address] [facility] [address] [place] [address] Abnormal thyroid function test (Primary [...] for Hyperthyroidism (New patient referred by Elisa Abdalla APRN for hyperthyroidism) Went to ED for chest pain 3 weeks ago ([facility]). Cardiac workup at that time was [...] range 0.465-4.6). Subjective Patient was born where: [place]. Facial radiation exposure: No. High iodine intake: [...] patient I will send her message on [employer] with results of lab work. - Will [...] Description 05/24/2025 11:00 AM EDT Office Visit [facility] [address] [facility] [address] [place] [address] Lowell Castanon PA-C [address] [facility] [address] [place] [address] documented as of this encounter Procedures Procedure [...] - 03/23/2025 9:08 PM EDT Performed at: [address] [place] [id number] Pouncing Machine Operator: Jovani Naylor MD, Phone: [phone] Lowell Castanon AR-C LAB BLOOD ORDERABLES Final Resu lt Performing Organization Address [facility] Co de Phone Number [facility] [address] [place] [address], * Thyroid Peroxidase Antibody (03/22/2025 10:05 AM EDT) Thyroid Peroxidase Antibody <9 0 - 34 IU/mL 03/23/2025 5:08 AM EDT [facility] Blood Venipuncture / Unknown 03/22/2025 10:05 AM EDT 03/22/2025 10:05 AM EDT Narrative [facility] - 03/23/2025 5:08 AM EDT Performed at: [address] [place] [id number] Pouncing Machine Operator: Mike Martinez PhD, Phone: [phone] Lowell Castanon AR-C LAB BLOOD ORDERABLES Final Resu lt Performing Organization Address [facility] de Phone Number [facility] [address] [place] [address], * Thyroid Stimulating Immunoglobulin (03/22/2025 10:05 AM EDT) Thyroid Stimulating Immunoglobulin <0.10 0.00 - 0.55 IU/L 03/24/2025 8:12 AM EDT [facility] Blood Structure of left upper limb / Unknown Venipuncture / Unknown 03/22/2025 10:05 AM EDT 03/22/2025 10:05 AM EDT Narrative [facility] - 03/24/2025 8:12 AM EDT Performed at: [address] [place] [id number] Pouncing Machine Operator: Jovani Naylor MD, Phone: [phone] Lowell Castanon AR-C LAB BLOOD ORDERABLES Final Resu lt Performing Organization Address City/[facility]/ZIP Co de Phone Number [facility] [address] [place] [address], * TSH (03/22/2025 10:05 AM EDT) Pathologist [facility] TSH 1.300 0.270 - 4.200 uIU/mL 03/22/2025 3:23 PM EDT [facility] Blood Venipuncture / Unknown 03/22/2025 10:05 AM EDT 03/22/2025 10:05 AM EDT [facility] LAB BLOOD ORDERABLES Final Resu lt Performing Organization Address City/[facility]/ZIP Co de Phone Number [facility]
[address] [place] [address], * T3 (03/22/2025 10:05 AM EDT) Pathologist [facility] T3, Total 155.0 80.0 - 200.0 ng/dl 03/22/2025 3:23 PM EDT [facility] Blood Venipuncture / Unknown 03/22/2025 10:05 AM EDT 03/22/2025 10:05 AM EDT Narrative [facility] - 03/22/2025 3:23 PM EDT Results may be falsely increased if patient taking Biotin. [facility] LAB BLOOD ORDERABLES Final Resu lt Performing Organization Address City/[facility]/ZIP Co de Phone Number [facility]
[address] [place] [address], * T4, Free (03/22/2025 10:05 AM EDT) Pathologist [facility] Free T4 1.03 0.92 - 1.68 ng/dL 03/22/2025 3:23 PM EDT [facility] Blood Venipuncture / Unknown 03/22/2025 10:05 AM EDT 03/22/2025 10:05 AM EDT us Lowell Castanon PA-C LAB BLOOD ORDERABLES Final Resu lt [facility]
[address] [place] [address], [place] [phone] documented in this encounter Visit Diagnoses Diagnosis Abnormal thyroid function test- Primary Nonspecific abnormal results of thyroid function study Palpitations documented in this encounter Care Teams Cold Work Operator Relationship Specialty Start Date End Date Elisa Abdalla APRN [address] [place] [address] PCP - General Nurse Practitioner 03/22/25 documented as of this encounter
--- OUTSIDE RECORDS SUMMARY | 2025-03-24 08:36 | XMS_ITS | Encounter Summary ---
[facility] Organization [facility] Address [address] [place] [address] Care Team Providers Care Fishing Tool Operator Name Role Phone Story, Elisa Krishnamurthy TASIA Primary Care Provider [phone] Reason for Visit * Reason Onset Date Comments FAX OFFICE NOTES 03/23/2025 Encounter Details Date Type Department Care Team (Late st Contact Info) Description 03/23/2025 Telephone [facility] [address] [address] Lowell Castanon PA-C [address] [address] FAX OFFICE NOTES Social History Tobacco Use Types Packs/Day Years Used Date Smoking Tobacco: Former Cigarettes 0.5 1 020 - 2020 Smokeless Tobacco: Never Comments:Vape Alcohol Use Standard Drinks/Week Comments Yes 0 (1 standard drink = 0.6 oz pur e alcohol) Social Comments No Sex and Gender Information Value Date Recorded Sex Assigned at Female 03/21/2025 7:29 PM EDT Legal Sex Female 9:02 AM EDT Gender Identity Not on file Sexual Orientation Straight 03/21/2025 7: 29 PM EDT documented as of this encounter Miscellaneous Notes * Telephone Encounter - Shayna Seals MA - 03/23/2025 1:26 PM EDT OV printed and faxed * Telephone Encounter - Amee Stafford RegSched Rep - 03/23/2025 1:14 PM EDT Caller: PCP'S OFFICE Relationship to patient: Best call back number: [phone] Patient is needing: PLEASE FAX PT'S OFFICE VISIT NOTES TO PCP OFFICE, FAX # [phone] documented in this encounter Plan of Treatment Upcoming Encounters Date Type Department Care Team (Late st Contact Info) Description 05/24/2025 11:00 AM EDT Office Visit [facility] [address] [phone] Kina, ROOSEVELT Etienne [address] [address] documented as of this encounter Visit Diagnoses Not on filedocumented in this encounter Care Teams Fishing Tool Operator Relationship Specialty Start Date End Date Elisa Abdalla APRN [address] [place] [address] PCP - General Nurse Practitioner 03/22/25 documented as of this encounter
--- OUTSIDE RECORDS SUMMARY | 2025-03-24 08:36 | XMS_ITS | Encounter Summary ---
[facility] Organization [facility] Address [address] [address] Care Team Providers Care Blacksmith Apprentice Name Role Phone Story, Elisa Krishnamurthy TASIA Primary Care Provider [phone] Encounter Details Date Type Department Care Team (Late st Contact Info) Description 03/23/2025 Telephone [facility] [address] [facility] [address] [place] [address] Lowell Castanon PA-C [address] [facility] [address] [place] [address] Social History Tobacco Use Types Packs/Day Years Used Date Smoking Tobacco: Former Cigarettes 0.5 1 2 020 - 2020 Smokeless Tobacco: Never Comments:Vape [...] Encounter - Shayna Seals MA - 03/23/2025 9:24 AM EDT Called the pt and told her there are still labs pending. Once resulted provider will contact her. She verbalized understanding. * Telephone Encounter - Junior Isaacs PCT - 03/23/2025 8:56 AM EDT Pt called requesting to consult on recent labs. documented in this encounter Plan of Treatment Upcoming Encounters Date Type Department Care Team (Late st Contact Info) Description 05/24/2025 11:00 AM EDT Office Visit [facility] [address] [address] Lowell Castanon PA-C [address] [address] documented as of this encounter Visit Diagnoses Not on filedocumented in this encounter Care Teams Blacksmith Apprentice Relationship Specialty Start Date End Date Elisa Abdalla APRN [address] [place] [address] PCP - General Nurse Practitioner 03/22/25 documented as of this encounter
--- OUTSIDE RECORDS SUMMARY | 2025-03-24 08:36 | XMS_ITS | Encounter Summary ---
[facility] Organization [facility] Address [address] [place] [address] Care Team Providers Care Cake Mixer Name Role Phone Story, Elisa Krishnamurthy TASIA Primary Care Provider Encounter Details Date Type Department Care Team (Late st Contact Info) Description 03/23/2025 Results Follow-Up [facility] [address] [place] [address] Lowell Castanon PA-C [address] [place] [address] Social History Tobacco Use Types [...] PM EDT documented as of this encounter Plan of Treatment Upcoming Encounters Date Type Department Care Team (Late st Contact Info) Description 05/24/2025 11:00 AM EDT Office Visit [facility] [address] [place] [address] Lowell Castanon PA-C [address] [address] documented as of this encounter Visit Diagnoses Not on filedocumented in this encounter Care Teams Cake Mixer Relationship Specialty Start Date End Date Elisa AbdallaTASIA [address] [place] [address] PCP - General Nurse Practitioner 03/22/25 documented as of this encounter
--- OUTSIDE RECORDS SUMMARY | 2025-03-24 08:36 | XMS_ITS | Encounter Summary ---
[facility] Organization [facility] Address [address] [place] [address] Care Team Providers Care Assurance Services Manager Health Care Name Role Phone Elisa Abdalla APRN Primary Care Provider [phone] Encounter Details Date Type Department Care Team (Latest Contact Info) Description 03/22/2025 Travel Social History Tobacco Use Types Packs/Day Years Used Date Smoking Tobacco: Former Cigarettes 0.5 1 - 2020 Smokeless Tobacco: Never Comments:Vape Alcohol [...] Description 05/24/2025 11:00 AM EDT Office Visit [facility] [address] [phone] Lowell Castanon PA-C [address] [address] documented as of this encounter Visit Diagnoses Not on filedocumented in this encounter Care Teams Assurance Services Manager Health Care Relationship Specialty Start Date End Date Elisa Abdalla APRN [address] [place] [address] PCP - General Nurse Practitioner 03/22/25 documented as of this encounter
--- OUTSIDE RECORDS SUMMARY | 2025-03-24 08:37 | XMS_ITS | Clinical Summary ---
Author Organization [facility] Address [address] [place] [address] Phone Care Team Providers Care Creative Art Director Name Role Phone Louie Morales MD Primary Care Provider [phone] Allergies No known active allergies Medications mometasone [...] Detected 05/28/2018 2:29 AM EDT [facility] Neisseria gonorrhoeae Not Detected Not Detected 05/28/2018 2:29 AM EDT [facility] Swab SPECIMEN FROM UTERINE CERVIX / Unknown 05/27/2018 6:19 AM EDT 05/27/2018 6:24 AM EDT Narrative [facility] - 05/28/2018 2:29 AM EDT Testing methodology is golf instructor mediated amplification (TMA) using the Aptima Combo [address]/[employer]. A negative result does not completely rule [...] of this test were validated by [facility]. This assay is FDA cleared to test the following specimens: clinician-collected endocervical, vaginal and male urethral swab specimens, patient collected vaginal specimens within a clinic setting, Thin Prep Specimens in PreservCyt Solution, and first-stream, unpreserved male urine specimens. Testing on female urine is not FDA approved by this methodology, but has been developed and validated by the [facility] laboratory. Detailed methodology is available upon request. Carly Douglas MD MICROBIOLOGY - GENERAL ORDERA BLES Final Result PREFERRED LAB [facility] [address] [facility] , [place] [place] [address] from Last 3 Months or Most Recently Relevant to Health Maintenance Insurance [facility] Care Teams Creative Art Director Relationship Specialty Start Date End Date Louie Morales MD [address] [address] [place] [address] [place] [id number] PCP - General Specialist/Technologist, Other-Surgical 12/22/12
--- OUTSIDE RECORDS SUMMARY | 2025-03-24 08:37 | XMS_ITS | Clinical Summary ---
[facility] Address [address] [place] [address] Care Team Providers Care Quill Winder Name Role Phone Story, Elisa Krishnamurthy TASIA Primary Care Provider Allergies No known active allergies Medications Zafemy 150-35 MCG/24HR Place 1 patch on the skin as directed by provider 1 (One) Time Per Week. 01/13/2025 Active Encounters Date Type Department Care Team Description 03/23/2025 Telephone [facility] [address] [place] [address] DayLowell PA-C FAX OFFICE NOTES 03/23/2025 Results Follow-Up [facility] [address] [place] [address] DayLowell PA-C 03/23/2025 Telephone [facility] [address] [place] [address] DayLowell PA-C 03/22/2025 10:00 AM EDT Office Visit [facility] [address] [place] [address] DayLowell PA-C Abnormal thyroid function test (Primary Dx); Palpitations 03/22/2025 Travel from Last 3 Months Family History Medical History Relation Name Comments Heart disease Maternal Grandmother Hypertension Maternal Grandmother Relation Name Status Comments Maternal Grandmother Social History Tobacco Use Types Packs/Day Years Used Date Smoking Tobacco: Former Cigarettes 0.5 1 2 020 - 2020 Smokeless Tobacco: Never Tobacco Cessation:Counseling [...] Orientation Straight 03/21/2025 7: 29 PM EDT Last Filed Vital Signs Vital Sign Reading [...] Mass Index 23.59 03/22/2025 9:33 AM EDT Plan of Treatment Upcoming Encounters Date Type Department Care Team (Late st Contact Info) Description 05/24/2025 11:00 AM EDT Office Visit [facility] [address] [address] Lowell Castanon PA-C [address] [address] Health Maintenance Due Date Last Done Comments Annual Gynecologic Pelvic an d Breast Exam 1996 PAP SMEAR 2017 COVID-19 Vaccine (2 2023-2 5 season) 2024 08/23/2021 ANNUAL PHYSICAL 03/19/2025 HEPATITIS C SCREENING 03/19/2025 INFLUENZA VACCINE 04/28/2025 05/06/2020, 05/23/2018, 06/06/2016 TDAP/TD VACCINES (4 - Td or Tdap) 09/16/2030 09/16/2020, 11/14/2018, 07/02/2016 Pneumococcal Vaccine 0-49 Aged Out No longer eligible based on patient's age to complete this topic Procedures Procedure Name Priority Date/Time Associated Diagnosis Comments THYROTROPIN RECEPTOR ANTIBODY Routine 03/22/2025 10:05 AM EDT Abnormal thyroid function test THYROID PEROXIDASE ANTIBODY Routine 03/22/2025 10:05 AM EDT Abnormal thyroid function test THYROID STIMULATING IMMUNOGLOBULIN Routine 03/22/2025 10:05 AM EDT Abnormal thyroid function test TSH Routine 03/22/2025 10:05 AM EDT Abnormal thyroid function test T3 Routine 03/22/2025 10:05 AM EDT Abnormal thyroid function test T4, FREE Routine 03/22/2025 10:05 AM EDT Abnormal thyroid function test from Last 3 Months Results * Thyroid Peroxidase Antibody (03/22/2025 10:05 AM EDT) Thyroid Peroxidase Antibody <9 0 - 34 IU/mL 03/23/2025 5:08 AM EDT [facility] Blood Venipuncture / Unknown 03/22/2025 10:05 AM EDT 03/22/2025 10:05 AM EDT Narrative [facility] - 03/23/2025 5:08 AM EDT Performed at: 01 - [facility] [id number] Diesel Maintenance Electrician: Mike Martinez PhD, Phone: [phone] us Lowell Castanon PA-C LAB BLOOD ORDERABLES Final Resu lt [facility] [address] [place] [address], * Thyroid Stimulating Immunoglobulin (03/22/2025 10:05 AM EDT) Thyroid Stimulating Immunoglobulin <0.10 0.00 - 0.55 IU/L 03/24/2025 8:12 AM EDT [facility] Blood Structure of left upper limb / Unknown Venipuncture / Unknown 03/22/2025 10:05 AM EDT 03/22/2025 10:05 AM EDT Narrative [facility] - 03/24/2025 8:12 AM EDT Performed at: [address] [place] [id number] Diesel Maintenance Electrician: Jovani Naylor MD, Phone: [phone] Lowell Castanon PA-C LAB BLOOD ORDERABLES Final Resu lt Performing Organization Address [facility] Co de Phone Number [facility] [address] [place] [address], * Thyrotropin Receptor Antibody (03/22/2025 10:05 AM EDT) Pathologist [facility] Thyrotropin Receptor Antibody <1.10 0.00 - 1.75 IU/L 03/23/2025 9:08 PM EDT [facility] Blood Venipuncture / Unknown 03/22/2025 10:05 AM EDT 03/22/2025 10:05 AM EDT Narrative [facility] - 03/23/2025 9:08 PM EDT Performed at: [address] [place] [id number] Diesel Maintenance Electrician: Jovani Naylor MD, Phone: [phone] Lowell Castanon PA-C LAB BLOOD ORDERABLES Final Resu lt Performing Organization Address [facility]/ZIP Co de Phone Number [facility] [address] [place] [address], [place] [phone] * T3 (03/22/2025 10:05 AM EDT) T3, Total 155.0 80.0 - 200.0 ng/dl 03/22/2025 3:23 PM EDT [facility] Blood Venipuncture / Unknown 03/22/2025 10:05 AM EDT 03/22/2025 10:05 AM EDT Narrative [facility] - 03/22/2025 3:23 PM EDT Results may be falsely increased if patient taking Biotin. [facility] PA-C LAB BLOOD ORDERABLES Final Resu lt Performing Organization Address City/[facility]/ZIP Co de Phone Number [facility]
[address] [place] [address], * TSH (03/22/2025 10:05 AM EDT) TSH 1.300 0.270 - 4.200 uIU/mL 03/22/2025 3:23 PM EDT [facility] Blood Venipuncture / Unknown 03/22/2025 10:05 AM EDT 03/22/2025 10:05 AM EDT [facility] PA-C LAB BLOOD ORDERABLES Final Resu lt Performing Organization Address City/[facility]/ZIP Co de Phone Number [facility]
[address] [place] [address], * T4, Free (03/22/2025 10:05 AM EDT) Free T4 1.03 0.92 - 1.68 ng/dL 03/22/2025 3:23 PM EDT [facility] Blood Venipuncture / Unknown 03/22/2025 10:05 AM EDT 03/22/2025 10:05 AM EDT [facility] PA-C LAB BLOOD ORDERABLES Final Resu lt Performing Organization Address City/[facility]/ZIP Co de Phone Number [facility]
[address] [place] [address], from Last 3 Months Insurance [facility] PPO Care Teams Quill Winder Relationship Specialty Start Date End Date Elisa Abdalla APRN [address] [place] [address] PCP - General Nurse Practitioner 03/22/25
--- NOTE | 2025-03-24 08:45 | CA_ITS ---
APPROVED REPORT EXAM: Comprehensive 2D, Doppler, and color-flow Echocardiogram [place]: Jossy Vela RT(R) Ht: 5 ft 2 in Wt: 128lbs BSA: 1.58 BP: 140/96 mmHg Indications: fatigue, chest pain, abn EKG 2D Dimensions Left Atrium 2.10 cm F: 2.7 - 3.8 LVEF (Cali's) 53.30 % F: 54 - 74 LVOT 1.80 cm (M/F) 1.5-2.5 LV Volume 74.50 mL F: 46 - 106 LV Volume Index 47.2 mL/m2 F: 29 - 61 LA Volume 10.60 mL LA Volume Index 6.71 mL/m2 (M/F) 16-34 EF AP4 53.80 % EF AP2 53.6 % EF BP 53.3 % GL Strain -18.4 % M-Mode Dimensions RVDd 1.92 cm (0.9-2.6) LVDd 3.90 cm (3.5-5.7) Ao Diam 2.91 cm (2.0-3.7) LVDs 2.94 cm (3.5-5.7) IVSd 0.76 cm (0.6-1.1) PWd 0.58 cm (0.6-1.1) EF (Teich) 49.50% FS 24.60% EDV (Teich) 65.90 mL ESV (Teich) 33.30 mL LV Diastology E Decel Time 150 (160-240 msec) E/A Ratio 1.3 MED E' 10.6 (>= 7 cm/sec) E'/MED E' Ratio 6.47 (<= 14) LAT E' 15.6 (>= 10 cm/sec) E/LAT E' Ratio 4.40 (<= 14) Mitral Valve MV E Max Anderson. 69.0 (40-130 cm/s) MV A Velocity 52.0 (40-130 cm/s) E/A Ratio 1.31 MV Decel. Time 150 (160-240 ms) Left Ventricle The left ventricle is normal size. Left ventricular systolic function is low normal. There is normal left ventricular wall thickness. There is normal LV segmental wall motion. The left ventricular diastolic function is normal. LVEF is 50%. Right Ventricle The right ventricle is normal size. The right ventricular systolic function is normal. Atria The left atrium size is normal. The right atrium size is normal. There is no color Doppler evidence of interatrial shunt. Aortic Valve The aortic valve opens well. There is no hemodynamically significant aortic valvular stenosis. No aortic regurgitation is present. Mitral Valve The mitral valve is normal in structure. No evidence of mitral valve stenosis. Mild mitral regurgitation is present. Tricuspid Valve The tricuspid valve leaflets are thin and pliable. Trace tricuspid regurgitation. There is insufficient TR jet to estimate RVSP. Pulmonic Valve The pulmonary valve is grossly normal in structure. Mild pulmonic valve regurgitation is present. Great Vessels The aortic root is normal in size. IVC is normal in size and collapses >50% with inspiration. Pericardium There is no pericardial effusion. Other Information Study Quality: Fair Conclusion Low normal LV systolic function (LVEF 50%). Normal RV size and function. Mild MR, moderate OK. Electronically signed by : Ann Seals MD 03/24/2025 12:23:07
--- NOTE | 2025-03-24 10:00 | CA_ITS ---
APPROVED REPORT Exam: Exercise Treadmill Technologist: Laureen Magana Stress Nurse: Lorri Fong Ht: 5 ft 2 in Wt: 128 lbs BSA: 1.58 m2 HR: 71 bpm BP: 138/84 mmHg Stress Test Details Test: Exercise stress testing was performed using a Roger protocol. HR Resting HR: 71 bpm Max Heart Rate (APMHR): 192.873676 bpm Max HR Achieved: 134 bpm Target HR (85% APMHR): 163.545280 bpm % of APMHR: 69.79 Recovery HR: 81 bpm BP Resting BP: 138.0/84.0 mmHg Max BP: 150.0/70.0 mmHg Recovery BP: 137.0/86.0 mmHg ECG Resting ECG: Sinus rhythm, no ectopy Stress ECG Conclusion Lungs CTA prior to test start. Reports constant chest pain prior to start. Exercise stage 3 on hold due to patient states she can't go steeper and faster. Test stopped at 7 minutes 50 seconds due to dizziness. Symptoms: Dizziness, constant chest pain prior and during stress test. Arrhythmias/Ectopy: None ST-T Changes: Less than 0.[address] segment changes. Conclusion: DTS = 3.5 medium risk group. Electronically signed by : Ann Seals MD 03/24/2025 11:56:30
== END 2025-03-24 23:59 | disposition home or self-care (01) ==
LOC: RT 08:33
PROVIDERS: PCP Nurse Practitioner Family; Visit Provider Nurse Practitioner
DX: I08.8 Other rheumatic multiple valve diseases (principal); R94.31 Abnormal electrocardiogram [ECG] [EKG]
CPT/HCPCS: 93017; 93018; 93306

== ENCOUNTER 2025-04-26 07:15 | Outpatient (CLI) | payer BC, SELFPAY ==
--- OUTSIDE RECORDS SUMMARY | 2025-03-22 10:00 | XMS_ITS | Encounter Summary ---
[facility] Address [address] [place] [address] Care Team Providers Care Teacher Adventure Education Name Role Phone Elisa Abdalla APRN Primary Care Provider [phone] Reason for Visit * Reason Comments Hyperthyroidism New patient referred by Elisa Abdalla APRN for hyperthyroidism Encounter Details Date Type Department Care Team (Late st Contact Info) Description 03/22/2025 10:00 AM EDT Office Visit [facility] [address] [facility] [address] [place] [phone] Lowell Castanon PA-C [address] [facility] [address] [place] [address] Abnormal thyroid function test (Primary Dx); Palpitations Social History Tobacco Use Types Packs/Day Years Used Date Smoking Tobacco: Former Cigarettes 0.5 1 - 2020 Smokeless Tobacco: Never Tobacco Cessation:Counseling Given: Not Answered Comments:Vape Alcohol Use Standard Drinks/Week Comments Yes 0 (1 standard drink = 0.6 oz pur e alcohol) Social Comments No Sex and Gender Information Value Date Recorded Sex Assigned at Female 03/21/2025 7:29 PM EDT Legal Sex Female 9:02 AM EDT Gender Identity Not on file Sexual Orientation Straight 03/21/2025 7: 29 PM EDT documented as of this encounter Last Filed Vital Signs Vital Sign Reading Time Taken Comments Blood Pressure 121/62 03/22/2025 9:33 AM EDT Pulse 86 03/22/2025 9:33 AM EDT Temperature - - Respiratory Rate - - Oxygen Saturation 100% 03/22/2025 9:33 AM EDT Inhaled Oxygen Concentration - - Weight 58.5 kg (129 lb) 03/22/2025 9:33 AM EDT Height 157.5 cm (5' 2 ) 03/22/2025 9:33 AM EDT Body Mass Index 23.59 03/22/2025 9:33 AM EDT documented in this encounter Progress Notes * Lowell Castanon PA-C - 03/22/2025 10:00 AM EDT Images from the original note were not included. Office Note Date: 03/22/2025 Patient Name: Kaylin Lama : 1995 Chief Complaint Patient presents with Hyperthyroidism New patient referred by Elisa Abdalla APRN for hyperthyroidism History of Present Illness: Kaylin Lama is a 29 y.o. female who presents for Hyperthyroidism (New patient referred by Elisa Adballa APRN for hyperthyroidism) Went to ED for chest pain 3 weeks ago ([facility]). Cardiac workup at that time was negative. Labs however showed high T4. Patient states she has had palpitations, tachycardia, heat and cold intolerance, hair loss for the past year that have been worsening over the past 1 to 2 months. Patient is currently wearing a heart monitor and seeing cardiology next month. Patient denies any iodine supplementation or additional thyroid hormone intake. Patient denies any family history of thyroid disease. She has no issues swallowing or swelling noted in her neck. Lab work completed 03/09/2025 showed total T4 12.0 (normal range 5.5-11), T3 24 (normal range 23.5-40.5), TSH 0.85 (normal range 0.465-4.6). Subjective Patient was born where: [place]. Facial radiation exposure: No. High iodine intake: No Family hx of thyroid disease: No. Review of Systems: Review of Systems Constitutional: Positive for appetite change, diaphoresis and fatigue. Respiratory: Positive for chest tightness. Cardiovascular: Positive for chest pain and palpitations. Gastrointestinal: Positive for nausea. Negative for vomiting. Endocrine: Positive for cold intolerance and heat intolerance. Negative for polydipsia and polyphagia. Genitourinary: Positive for dyspareunia, menstrual problem and vaginal bleeding. Psychiatric/Behavioral: Positive for agitation, decreased concentration and sleep disturbance. The patient is nervous/anxious. The following portions of the patient's history were reviewed and updated as appropriate: allergies, current medications, past family history, past medical history, past social history, past surgicalhistory, and problem list. Objective Visit Vitals BP 121/62 (BP Location: Left arm, Patient Position: Sitting, Cuff Size: Adult) Pulse 86 Ht 157.5 cm (62 ) Wt 58.5 kg (129 lb) SpO2 100% BMI 23.59 kg/m?? Physical Exam: Physical Exam Constitutional: General: She is not in acute distress. Appearance: Normal appearance. HENT: Head: Normocephalic and atraumatic. Neck: Thyroid: No thyroid mass, thyromegaly or thyroid tenderness. Cardiovascular: Rate and Rhythm: Normal rate and regular rhythm. Heart sounds: No murmur heard. No friction rub. No gallop. Pulmonary: Effort: Pulmonary effort is normal. Breath sounds: No wheezing, rhonchi or rales. Musculoskeletal: Cervical back: Full passive range of motion without pain. Lymphadenopathy: Cervical: No cervical adenopathy. Skin: General: Skin is warm and dry. Neurological: Mental Status: She is alert and oriented to person, place, and time. Cranial Nerves: No cranial nerve deficit. Psychiatric: Mood and Affect: Mood normal. Behavior: Behavior normal. Assessment / Plan Assessment & Plan: Assessment & Plan Abnormal thyroid function test - Reviewed previous lab work that showed high T4. Will repeat TFTs today. - I discussed possible causes of hyperthyroidism including Graves' disease, thyroiditis. - No palpable nodules on thyroid today in office. - Will check thyroid antibodies as well lab work today. - Advised patient I will send her message on [employer] with results of lab work. - Will follow-up in 2 months. Orders: T4, Free T3 TSH Thyroid Stimulating Immunoglobulin Thyroid Peroxidase Antibody Thyrotropin Receptor Antibody Palpitations - Patient currently wearing heart monitor. -She is to follow-up with cardiology next month. Current Outpatient Medications Medication Instructions Zafemy 150-35 MCG/24HR 1 patch, Weekly Return in about 2 months (around 05/22/2025). Electronically signed by: Lowell Castanon PA-C 03/22/2025 documented in this encounter Plan of Treatment Upcoming Encounters Date Type Department Care Team (Late st Contact Info) Description 05/24/2025 11:00 AM EDT Office Visit [facility] [address] [facility] [address] [place] [address] Lowell Castanon PA-C [address] [facility] [address] [place] [address] documented as of this encounter Procedures Procedure Name Priority Date/Time Associated Diagnosis Comments THYROID PEROXIDASE ANTIBODY Routine 03/22/2025 10:05 AM EDT Abnormal thyroid function test THYROID STIMULATING IMMUNOGLOBULIN Routine 03/22/2025 10:05 AM EDT Abnormal thyroid function test THYROTROPIN RECEPTOR ANTIBODY Routine 03/22/2025 10:05 AM EDT Abnormal thyroid function test T3 Routine 03/22/2025 10:05 AM EDT Abnormal thyroid function test TSH Routine 03/22/2025 10:05 AM EDT Abnormal thyroid function test T4, FREE Routine 03/22/2025 10:05 AM EDT Abnormal thyroid function test documented in this encounter Results * Thyrotropin Receptor Antibody (03/22/2025 10:05 AM EDT) Thyrotropin Receptor Antibody <1.10 0.00 - 1.75 IU/L 03/23/2025 9:08 PM EDT [facility] Blood Venipuncture / Unknown 03/22/2025 10:05 AM EDT 03/22/2025 10:05 AM EDT Narrative [facility] - 03/23/2025 9:08 PM EDT Performed at: [address] [place] [id number] Brake Repairer Air: Jovani Naylor MD, Phone: [phone] Lowell Castanon PR-C LAB BLOOD ORDERABLES Final Resu lt Performing Organization Address [facility] Co de Phone Number [facility] [address] [place] [address], * Thyroid Peroxidase Antibody (03/22/2025 10:05 AM EDT) Thyroid Peroxidase Antibody <9 0 - 34 IU/mL 03/23/2025 5:08 AM EDT [facility] Blood Venipuncture / Unknown 03/22/2025 10:05 AM EDT 03/22/2025 10:05 AM EDT Narrative [facility] - 03/23/2025 5:08 AM EDT Performed at: [address] [place] [id number] Brake Repairer Air: Mike Martinez PhD, Phone: [phone] Lowell Castanon PR-C LAB BLOOD ORDERABLES Final Resu lt Performing Organization Address [facility] de Phone Number [facility] [address] [place] [address], * Thyroid Stimulating Immunoglobulin (03/22/2025 10:05 AM EDT) Thyroid Stimulating Immunoglobulin <0.10 0.00 - 0.55 IU/L 03/24/2025 8:12 AM EDT [facility] Blood Structure of left upper limb / Unknown Venipuncture / Unknown 03/22/2025 10:05 AM EDT 03/22/2025 10:05 AM EDT Narrative [facility] - 03/24/2025 8:12 AM EDT Performed at: [address] [place] [id number] Brake Repairer Air: Jovani Naylor MD, Phone: [phone] Lowell Castanon PR-C LAB BLOOD ORDERABLES Final Resu lt Performing Organization Address City/[facility]/ZIP Co de Phone Number [facility] [address] [place] [address], * TSH (03/22/2025 10:05 AM EDT) Pathologist [facility] TSH 1.300 0.270 - 4.200 uIU/mL 03/22/2025 3:23 PM EDT [facility] Blood Venipuncture / Unknown 03/22/2025 10:05 AM EDT 03/22/2025 10:05 AM EDT [facility] LAB BLOOD ORDERABLES Final Resu lt Performing Organization Address City/[facility]/ZIP Co de Phone Number [facility]
[address] [place] [address], * T3 (03/22/2025 10:05 AM EDT) Pathologist [facility] T3, Total 155.0 80.0 - 200.0 ng/dl 03/22/2025 3:23 PM EDT [facility] Blood Venipuncture / Unknown 03/22/2025 10:05 AM EDT 03/22/2025 10:05 AM EDT Narrative [facility] - 03/22/2025 3:23 PM EDT Results may be falsely increased if patient taking Biotin. [facility] LAB BLOOD ORDERABLES Final Resu lt Performing Organization Address City/[facility]/ZIP Co de Phone Number [facility]
[address] [place] [address], * T4, Free (03/22/2025 10:05 AM EDT) Pathologist [facility] Free T4 1.03 0.92 - 1.68 ng/dL 03/22/2025 3:23 PM EDT [facility] Blood Venipuncture / Unknown 03/22/2025 10:05 AM EDT 03/22/2025 10:05 AM EDT us Lowell Castanon PA-C LAB BLOOD ORDERABLES Final Resu lt [facility]
[address] [place] [address], [place] [phone] documented in this encounter Visit Diagnoses Diagnosis Abnormal thyroid function test- Primary Nonspecific abnormal results of thyroid function study Palpitations documented in this encounter Care Teams Teacher Adventure Education Relationship Specialty Start Date End Date Elisa Abdalla APRN [address] [place] [address] PCP - General Nurse Practitioner 03/22/25 documented as of this encounter
--- OUTSIDE RECORDS SUMMARY | 2025-04-26 07:17 | XMS_ITS | Encounter Summary ---
[facility] Address [address] [place] [address] Care Team Providers Care Cell Repairer Name Role Phone Story, Elisa Krishnamurthy TASIA Primary Care Provider [phone] Encounter Details Date Type Department Care Team (Late st Contact Info) Description 03/23/2025 Telephone [facility] [address] [facility] [address] [place] [address] Lowell Castanon PA-C [address] [facility] [address] [place] [address] Social History Tobacco Use Types [...] Description 05/24/2025 11:00 AM EDT Office Visit [facility] [address] [address] Lowell Castanon PA-C [address] [address] documented as of this encounter Visit Diagnoses Not on filedocumented in this encounter Care Teams Cell Repairer Relationship Specialty Start Date End Date Elisa Abdalla APRN [address] [place] [address] PCP - General Nurse Practitioner 03/22/25 documented as of this encounter
--- OUTSIDE RECORDS SUMMARY | 2025-04-26 07:17 | XMS_ITS | Encounter Summary ---
[facility] Address [address] [place] [address] Care Team Providers Care Application Administrator Name Role Phone Story, Elisa Krishnamurthy TASIA Primary Care Provider [phone] Encounter Details Date Type Department Care Team (Late st Contact Info) Description 03/23/2025 Results Follow-Up [facility] [address] [place] [address] Lowell Castanon PA-C [address] [facility] [address] [place] [address] Social History Tobacco Use Types [...] Description 05/24/2025 11:00 AM EDT Office Visit [facility] [address] [place] [address] Lowell Castanon PA-C [address] [address] documented as of this encounter Visit Diagnoses Not on filedocumented in this encounter Care Teams Application Administrator Relationship Specialty Start Date End Date Elisa AbdallaTASIA [address] [place] [address] PCP - General Nurse Practitioner 03/22/25 documented as of this encounter
--- OUTSIDE RECORDS SUMMARY | 2025-04-26 07:17 | XMS_ITS | Encounter Summary ---
[facility] Address [address] [place] [address] Care Team Providers Care Store Receiver Name Role Phone Story, Elisa Krishnamurthy TASIA Primary Care Provider [phone] Reason for Visit * Reason Onset Date Comments FAX OFFICE NOTES 03/23/2025 Encounter Details Date Type Department Care Team (Late st Contact Info) Description 03/23/2025 Telephone [facility] ENDOCRIN[facility] [address] [address] Lowell Castanon PA-C [address] [address] FAX OFFICE NOTES Social History [...] VISIT NOTES TO PCP OFFICE, FAX # [phone] documented in this encounter Plan of Treatment Upcoming Encounters Date Type Department Care Team (Late st Contact Info) Description 05/24/2025 11:00 AM EDT Office Visit [facility]CR[facility] [address] [address] Kina, ROOSEVELT Etienne [address] [address] documented as of this encounter Visit Diagnoses Not on filedocumented in this encounter Care Teams Store Receiver Relationship Specialty Start Date End Date Elisa Abdalla APRN [address] [place] [address] PCP - General Nurse Practitioner 03/22/25 documented as of this encounter
--- OUTSIDE RECORDS SUMMARY | 2025-04-26 07:18 | XMS_ITS | Encounter Summary ---
[facility] Address [address] [place] [address] Care Team Providers Care Laboratory Supervisor Name Role Phone Elisa Abdalla APRN Primary Care Provider [phone] Encounter Details Date Type Department Care Team [...] Description 05/24/2025 11:00 AM EDT Office Visit [facility] ENDOCR[facility] [address] [phone] Lowell Castanon PA-C [address] [address] documented as of this encounter Visit Diagnoses Not on filedocumented in this encounter Care Teams Laboratory Supervisor Relationship Specialty Start Date End Date Elisa Abdalla APRN [address] [place] [address] PCP - General Nurse Practitioner 03/22/25 documented as of this encounter
--- OUTSIDE RECORDS SUMMARY | 2025-04-26 07:18 | XMS_ITS | Clinical Summary ---
Author Organization [facility] Address [address] [place] [address] Care Team Providers Care Electric Operator Name Role Phone Story, Elisa Krishnamurthy TASIA Primary Care Provider Allergies No known active allergies Medications Zafemy 150-35 MCG/24HR Place 1 patch on the skin as directed by provider 1 (One) Time Per Week. 01/13/2025 Active Encounters Date Type Department Care Team Description 03/23/2025 Telephone [facility] [address] [place] [address] DayLowell PA-C FAX OFFICE NOTES 03/23/2025 Results Follow-Up [facility] [address] [place] [address] DayLowell PA-C 03/23/2025 Telephone [facility] [address] [place] [address] DayLowell PA-C 03/22/2025 10:00 AM EDT Office Visit [facility] [address] [place] [address] DayLowell PA-C Abnormal thyroid function test (Primary [...] Description 05/24/2025 11:00 AM EDT Office Visit [facility] [address] [address] Lowell Castanon PA-C [address] [address] Health Maintenance Due Date Last Done Comments Annual Gynecologic Pelvic an d Breast Exam 1996 PAP SMEAR 2017 INFLUENZA VACCINE 02/26/2025 05/06/2020, 05/23/2018, 06/06/2016 ANNUAL PHYSICAL 03/19/2025 HEPATITIS C SCREENING 03/19/2025 TDAP/TD VACCINES (4 - Td or Tdap) [...] - 03/23/2025 5:08 AM EDT Performed at: - [address] [id number] Audioprosthologist: Mike Martinez PhD, Phone: [phone] us Lowell Castanon PA-C LAB BLOOD ORDERABLES Final Resu lt [facility] [address] [place] [address], * Thyroid Stimulating Immunoglobulin (03/22/2025 10:05 AM EDT) Thyroid Stimulating Immunoglobulin <0.10 0.00 - 0.55 IU/L 03/24/2025 8:12 AM EDT [facility] Blood Structure of left upper limb / Unknown Venipuncture / Unknown 03/22/2025 10:05 AM EDT 03/22/2025 10:05 AM EDT Narrative [facility] - 03/24/2025 8:12 AM EDT Performed at: [address] [place] [id number] Audioprosthologist: Jovani Naylor MD, Phone: [phone] [facility] Kina [facility] BLOOD ORDERABLES Final Resu lt Performing Organization Address [facility]/ZIP Co de Phone Number [facility] [address] [place] [address], * Thyrotropin Receptor Antibody (03/22/2025 10:05 AM EDT) Thyrotropin Receptor Antibody <1.10 0.00 - 1.75 IU/L 03/23/2025 9:08 PM EDT [facility] Blood Venipuncture / Unknown 03/22/2025 10:05 AM EDT 03/22/2025 10:05 AM EDT Narrative [facility] - 03/23/2025 9:08 PM EDT Performed at: [address] [place] [id number] Audioprosthologist: Jovani Naylor MD, Phone: [phone] Lowell THOMAS-C LAB BLOOD ORDERABLES Final Resu lt Performing Organization Address City/[facility]/ZIP Co de Phone Number [facility] [address] [place] [address], [place] [phone] * T3 (03/22/2025 10:05 AM EDT) T3, Total 155.0 80.0 - 200.0 ng/dl 03/22/2025 3:23 PM EDT [facility] Blood Venipuncture / Unknown 03/22/2025 10:05 AM EDT 03/22/2025 10:05 AM EDT Narrative [facility] - 03/22/2025 3:23 PM EDT Results may be falsely increased if patient taking Biotin. [facility] PA-C LAB BLOOD ORDERABLES Final Resu lt Performing Organization Address City/[facility]/ZIP Co de Phone Number [facility]
[address] [place] [address], [place] [phone] * TSH (03/22/2025 10:05 AM EDT) TSH 1.300 0.270 - 4.200 uIU/mL 03/22/2025 3:23 PM EDT [facility] Blood Venipuncture / Unknown 03/22/2025 10:05 AM EDT 03/22/2025 10:05 AM EDT [facility] PA-C LAB BLOOD ORDERABLES Final Resu lt Performing Organization Address [facility] Co de Phone Number [facility]
[address] [place] [address], [place] [phone] * T4, Free (03/22/2025 10:05 AM EDT) Free T4 1.03 0.92 - 1.68 ng/dL 03/22/2025 3:23 PM EDT [facility] Blood Venipuncture / Unknown 03/22/2025 10:05 AM EDT 03/22/2025 10:05 AM EDT [facility] PA-C LAB BLOOD ORDERABLES Final Resu lt Performing Organization Address [facility]/ZIP Co de Phone Number [facility]
[address] [place] [address], from Last 3 Months Insurance [facility] [employer] PPO Care Teams Electric Operator Relationship Specialty Start Date End Date Elisa Abdalla APRN [address] [place] [id number] PCP - General Nurse Practitioner 03/22/25
--- OUTSIDE RECORDS SUMMARY | 2025-04-26 07:18 | XMS_ITS | Data Portability ---
Author Organization [facility] Address [address] [place] [address] Care Team Providers Care Invasive Physician Name Role Phone CKANDREJANEEN Paper Box Cutter [phone] Assessment No assessment recorded. Plan of Treatment Reminders Order Date Submit Date Provider Last Modified By Organization Details Last Modified Time Details Appointments None record ed. Lab None record ed. Referral None record ed. Procedures None record ed. Surgeries None record ed. Imaging XR, wrist 2023 024 [email or web address] [facility], [address] [place] [address] [place], [address], 4 14:59:32 Medication Orders Kenalo g 10 mg/mL suspen kj for inject ion 2023 024 [facility] [place], [address], 4 09:09:55 bupiva latoya (PF) 0.5 % (5 mg/mL) inject ion soluti on 2023 024 [facility] [address] [place], [address], 4 09:09:55 Patient TargetsNo targets recorded. Patient InstructionsNo instructions recorded. Reason for Referral None Reported. Results Created Date Observation Date Name Description Value Unit Range Abnormal Flag Note LastModifiedBy Organization Detail LastModifiedTime 11/18/19 24 XR, wrist No observ ation record ed. STANISLAV [facility] [address] [facility] , [place], [address], 11/18/2023 08:25:22 Result Notes None recorded. Medical Equipment None Reported. Allergies No known drug allergies Medications Name Sig Start Date Stop Date Status Note LastModified by Organization Details LastModified Time cyclobenzap rine 10 mg tablet TAKE 1 TABLET BY MOUTH THREE TIMES DAILY NEEDED FOR MUSCLE SPASM FOR 7 DAYS 12/08 completed Not Available Not Available Not Available fluconazole 150 mg tablet TAKE 1 TABLET BY MOUTH A ONE TIME DOSE 12/08 completed Not Available Not Available Not Available ciprofloxac in 500 mg tablet TAKE 1 TABLET BY MOUTH TWICE DAILY FOR 7 DAYS 12/08 completed Not Available Not Available Not Available Kenalog 10 mg/mL suspension for injection Take 10 mg by injection route. 12/08 completed Not Available Not Available Not Available cefdinir 300 mg capsule TAKE 1 CAPSULE BY MOUTH TWICE DAILY FOR 7 DAYS 12/08 completed Not Available Not Available Not Available bupivacaine (PF) 0.5 % (5 mg/mL) injection solution Take 1 mL by injection route. 12/08 completed Not Available Not Available Not Available Vitals None Recorded Social History Question Answer Notes LastModified by Organizat ion Details LastModified Time Tobacco Smoking Status Former Smoker Joanne Esqueda [facility] [place] 11/18/2023 08:24:32 Do You Have An Advance Directive? No Information not available 11/18/2023 Are You Blind Or Do You Have Difficulty Seeing? No Information not available 11/18/2023 What Was The Date Of Your Most Recent Tobacco Screening? 11/18/2023 Information not available 11/18/2023 Are You Passively Exposed To Smoke? Yes Information not available 11/18/2023 How Many Years Have You Smoked Tobacco? 5 Information not available 11/18/2023 Sex: Female Functional Status Question Answer Note LastModified by Organizat ion Details LastModified Time Do you use any illicit or recreational drugs? No Information not available 11/18/2023 What is your level of alcohol consumption? None Information not available 11/18/2023 What is your exercise level? Moderate Information not available 11/18/2023 Mental Status Question Answer Note LastModified by Organization D etails LastModified Time Do you feel stressed (tense, restless, nervous, or anxious, or unable to sleep at night)? [id number] Information not available 11/18/2023 Family History Nothing Reported. Medical History No medical history recorded. Gynecological HistoryNo gynecological history recorded. Obstetrics History GPAL:G 0 P 0 0 0 0 Past Encounters Encounter ID Performer Location Encounter Start Date Encounter Closed Date Diagnosis/Indication Diagnosis SNOMED-CT Code Diagnosis ICD10 Code Diagnosis IMO Codes Diagnosis Note [id number] DO MAKSIM ANDERSON [address] [address] 11/18/2023 08:04:49 11/18/2023 08:39:07 Pain of left wrist 7064578835 50185 M25.532 Tendinitis of left wrist region [id number] 6348831 M67.531 [id number] DO MAKSIM ANDERSON [address] [address] 12/09/2023 08:57:25 12/09/2023 09:13:40 Pain of left wrist 6896398355 47984 M25.532 Tendinitis of left wrist region [id number] 4714462 M67.834 Health Concerns Section Related Observation LastModified by Organization Detai ls LastModified Time None Recorded Concern Status LastModified by Organization Details LastModified Time None Recorded Advance Directives Directive N: Payers Insurance Date Sequence Insurance Name Policy Number Policy Palacios Covered Member ID Palacios Member ID Guarantor Name 12/09/2023 [facility] 11/18/2023 SLIDING FEE SCHEDULE - DISCOUNT Kaylin Lama Notes Date Note Type Note Provider Name and Address Organization Details Recorded Time 11/18/2023 text/html ROS as noted in the HPI 28 y/o female here today for W/C injury, employee at [employer] in [employer] [facility] [facility]. Patient states she was lifting a box when she injured her left wrist/forearm on 11.12.23. Medial forearm radiating into small finger. Now also having pain volar wrist. Denies numbness/tingling. Pt returned to work on 11.14.23. Pt states the pain is worse than when she first injured it. Pain is constant but worse with lifting and turning motions. Wearing removable wrist brace. Taking Ibuprofen. 11/12/2023 - XR left forearm, left hand and left wrist- no fx. There is a 6 cm of ulnar variance. Repeat x-rays today in office. E5AP ENRRIQUE PINTO, DO [address], [place], [address], [facility] [employer] [employer] 11/18/2023 08:58:40 12/09/2023 text/html ROS as noted in the HPI 28 y/o female here today for recheck left wrist W/C injury 4 weeks post injury. 11/18/2023-Left FCU injection. Pt states overall her pain is better. Has pain with lifting heavier objects and occasionally has a sharp pain about wrist. E1AP ENRRIQUERebekah PINTO, DO [address], [place], [address], [facility] 12/09/2023 11:51:04 OBGyn Episode No OBEpisode recorded.
--- OUTSIDE RECORDS SUMMARY | 2025-04-26 07:18 | XMS_ITS | Clinical Summary ---
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 Name Role Phone Louie Morales MD Primary Care Provider [phone] Allergies No known active allergies Medications mometasone [...] on file Sexual Orientation Not on file Last Filed Vital Signs Vital Sign Reading [...] Smear 2017 COVID-19 Vaccine (2023-2 5 season) 2025 Influenza Vaccine (#1) 2025 Chlamydia Screening Discontinued [...] Detected 05/28/2018 2:29 AM EDT [facility] Neisseria gonorrhoeae Not Detected Not Detected 05/28/2018 2:29 AM EDT [facility] Swab SPECIMEN FROM UTERINE CERVIX / Unknown 05/27/2018 6:19 AM EDT 05/27/2018 6:24 AM EDT Narrative [facility] - 05/28/2018 2:29 AM EDT Testing methodology is 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 A negative result does not completely rule [...] were validated by [facility] laboratory. This assay is FDA cleared to test the following specimens: clinician-collected endocervical, vaginal and male urethral swab specimens, patient collected vaginal specimens within a clinic setting, Thin Prep Specimens in PreservCyt Solution, and first-stream, unpreserved male urine specimens. Testing on female urine is not FDA approved by this methodology, but has been developed and validated by the [facility] laboratory. Detailed methodology is available upon request. Carly Douglas MD MICROBIOLOGY - GENERAL ORDERA BLES Final Result [facility] [address] [facility] , [place] [address] from Last 3 Months or Most Recently Relevant to Health Maintenance Insurance [facility] Care Teams Housekeeping And Laundry Team Leader Relationship Specialty Start Date End Date Louie Morales MD [address] [facility] [address] [place] [address] [place] [id number] PCP - General Specialist/Technologist, Other-Surgical 12/22/12
[2025-04-26 07:25] VITALS: BMI 24.3
[2025-04-26 07:38] VITALS: BP 125/81; PULSE 76; RESP 18; O2SAT 98
[2025-04-26] MEDS: METOPROLOL TARTRATE 50MG TABLET PO (07:45)
[2025-04-26] MEDS: IVABRADINE HCL 7.5MG TABLET PO (07:45)
[2025-04-26 08:01] LABS: Anion Gap 11.9 mEq/L (5-15); Blood Urea Nitrogen 7 mg/dl (7-17); Calcium 9.2 mg/dl (8.4-10.2); Carbon Dioxide 27 mmol/L (22.0-30.0); Chloride 104 mmol/L (98-107); Creatinine Clearance Estimated 114 mL/min (50-200); Creatinine,Serum 0.70 mg/dl (0.52-1.04); Estimated Glomerular Filt Rate 100 ml/min (>60); GFR (African American) 121 ML/MIN (>60); Glucose 82 mg/dl (74-100); Potassium 3.9 mmoL/L (3.5-5.1); Sodium 139 mmol/L (136-145)
[2025-04-26 08:07] LABS: HCG Qualitative, Serum Negative (Negative)
[2025-04-26 08:30] VITALS: BP 125/82; PULSE 60; RESP 18; O2SAT 100
[2025-04-26] MEDS: NITROGLYCERIN 0.4MG SL TABLET SL (08:30)
--- NOTE | 2025-04-26 08:30 | CT_ITS ---
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 A noncontrast coronary calcium scan was performed. A CT attenuation threshold of 130 Hounsfield units (HU) was used for the detection of calcium in contiguous voxels of 1 sq mm in area to be counted as individual lesions. Bolus tracking in the ascending aorta with a threshold of 180 HU was performed. Immediately afterwards, ECG synchronized cardiac CT was then performed from the cardiac base to apex using retrospective gating with ECG tube current modulation. A total of 85 mL of Isovue 370 mg/mL contrast medium was administered at 5 mL/sec followed by a saline flush using a biphasic injection protocol. A tube voltage of 120 KVp was used. The patient received the following medications prior to the cardiac CT. 75 mg of oral metoprolol 15 mg of oral ivabradine 0.8 mg of sublingual nitroglycerin The average heart rate at the time of acquisition was 52 bpm and regular. Image Reconstruction Transaxial images were reconstructed at 0.67 mm slide thickness. Data was reviewed interactively on an advanced workstation capable of 2 and 3-dimensional displays in all conventional reconstruction formats, including multiplanar reformations, maximum intensity projections, curved multiplanar reformations, and volume rendered reconstructions. When applicable, selected routine images describing the relevant coronary anatomy and pathology were saved and sent to PACS. Complications None Technical Quality Overall image quality was good. Coronary artery opacification was adequate. Total DLP (Dose-Length Product) is 1454.5 mGy-cm. The reported value represents the total of one or more individual components during the CT acquisition of this date and at this time, and as such, the same value may appear in more than one CT report depending on the interpreting/reporting physicians. COMPARISON None FINDINGS CT Coronary Calcium Scoring LMA (Left Main Artery) = 0 LAD (Left Anterior Descending) = 0 LCX (Left Coronary Circumflex) = 0 RCA (Right Coronary Artery) = 0 Total Calcium Score = 0 using the AJ-130 method. The interpretation of the calcium heart score is based on the following continuum*: 0 = no calcified plaque detected (risk of coronary artery disease is very low ??? less than 5%) 1-10 = calcium detected in extremely minimal levels (risk of coronary diseases is still low ??? less than 10%) 11-100 = mild levels of plaque detected with certainty (mild or minimal narrowing of heart arteries is likely) 101-400 = definite,at least moderate levels of plaque detected (relatively high risk of a heart attack within 3-5 years) >401-999 = extensive levels of plaque detected (high risk of heart attack, high levels of vascular disease are present, high likelihood of at least one significant coronary narrowing) *The calcium heart score quantifies the burden of coronary calcification/plaque in the coronary arteries. The calcium heart score is not able to evaluate the presence or burden of non-calcified (i.e. soft) plaque. There is no identifiable calcification in the aortic valve, mitral annulus or mitral valve, pericardium, or myocardium. Coronary CT Angiography The coronary arterial system is right dominant. Quantitative Stenosis Grading: Left Main (LM): The left main originates normally from the left sinus of Valsalva. The LM bifurcates into the left anterior descending artery and left circumflex artery. The LM is patent with no evidence of atherosclerosis. Left Anterior Descending (LAD) and Diagonal Branches: The LAD gives off 3 diagonal branch(es). The LAD and its branches are patent with no evidence of atherosclerosis. There is no evidence of LAD-myocardial bridge. Left Circumflex (LCX) and Obtuse Marginals (OM): The LCX gives off 1 Obtuse Marginal (OM) branch(es). The LCX and its branches are patent with no evidence of atherosclerosis. Right Coronary Artery (RCA): The RCA originates normally from the right sinus of Valsalva. The RCA gives off a posterior descending artery (PDA) and posterolateral (PL) branches. The RCA and its branches are patent with no evidence of atherosclerosis. Non-Coronary Cardiac Findings: Analysis of the left ventricular (LV) structure and function was performed after 3-D reconstruction of the LV from axial images, with user-corrected automatic contouring for assessment of LV volumes and user-defined reconstruction from oblique planes for measurement of 3-D cardiac structure and function. -The left ventricle systolic function is normal. -There is no left atrial appendage filling defect. Two right pulmonary veins and two left pulmonary veins drain normally into the left atrium. -No pericardial thickening or calcification. -Central and branch pulmonary arteries in the [id number]-oz-ntdi are unremarkable. -Thoracic aorta within the visualized thoracic aortic-branches in the [id number] is unremarkable. Extracardiac Structures No significant extra-cardiac findings. Note, however, that this study is focused on the cardiac findings. IMPRESSION -Absence of coronary calcification with an Agatston score = 0 using the AJ-130 method. -No evidence of significant flow-limiting atherosclerosis of the coronary arteries. -No evidence of coronary anomalies or myocardial bridges. -CAD-RADS 0. Management recommendations per ACC/AHA guidelines*, as clinically appropriate. *Recommendations: CAD RADS 0: Reassurance. Consider non-atherosclerotic causes of chest pain. CAD RADS 1: Consider non-atherosclerotic causes of chest pain. Consider preventive therapy and risk factor modification. CAD RADS 2: Consider non-atherosclerotic causes of chest pain. Consider preventive therapy and risk factor modification, particularly for patients with nonobstructive plaque in multiple segments. CAD RADS 3: Consider further functional testing. Consider symptom-guided anti-ischemic and preventive pharmacotherapy as well as risk factor modification per published guideline statements. CAD RADS 4A: Consider further functional testing or invasive coronary angiography with revascularization per published guideline statements. Consider symptom-guided anti-ischemic and preventive pharmacotherapy as well as risk factor modification per published guideline statements. CAD RADS 4B: Invasive coronary angiography recommended with revascularization per published guideline statements. Consider symptom-guided anti-ischemic and preventive pharmacotherapy as well as risk factor modification per published guideline statements. CAD RADS 5: Consider invasive angiography and/or viability assessment with revascularization per published guideline statements. Consider symptom-guided anti-ischemic and preventive pharmacotherapy as well as risk factor modification per published guideline statements. CRITICAL RESULT None COMMUNICATION Per this written report The coronary and cardiac findings of this CCTA were reviewed, reported, and signed by Sedrick Seals MD (Riveter Helper) Conclusion Electronically signed by : Ann Seals MD 04/26/2025 12:16:55
[2025-04-26 08:35] VITALS: BP 115/82; PULSE 67; RESP 18; O2SAT 100
[2025-04-26 08:40] VITALS: BP 102/69; PULSE 62; RESP 18; O2SAT 100
[2025-04-26 08:45] VITALS: BP 98/71; PULSE 57; RESP 18; O2SAT 99
[2025-04-26] MEDS: SODIUM CHLORIDE 0.9% 10ML SYR (RAD ONLY) 10 ML IV (08:45)
[2025-04-26] MEDS: IOPAMIDOL-370 (76%);100ML BOTTLE 85 ML IV (08:45)
[2025-04-26] MEDS: 0.9 % SODIUM CHLORIDE 50 ML VIAL IV (08:45)
[2025-04-26 08:50] VITALS: BP 103/75; PULSE 59; RESP 18; O2SAT 99
== END 2025-04-26 23:59 | disposition home or self-care (01) ==
PROVIDERS: PCP Nurse Practitioner Family; Visit Provider Nurse Practitioner
DX: G47.9 Sleep disorder, unspecified (principal); R40.0 Somnolence; R53.83 Other fatigue; R07.89 Other chest pain; R06.00 Dyspnea, unspecified
CPT/HCPCS: 75574; 80048; 84703; Q9967